=== PATIENT | female | born 1960 | race Caucasian/White ===

== ENCOUNTER 2020-06-25 10:50 | Inpatient (IN) ==
[2020-06-25] MEDS ORDERED: DEXTROSE 50% 25 GM/50 ML VIAL IV PRN (12:17)
[2020-06-25] MEDS ORDERED: ACETAMINOPHEN 325 MG TABLET PO PRN (12:17)
[2020-06-25] MEDS ORDERED: ONDANSETRON 4 MG/2 ML VIAL IV PRN (12:17)
[2020-06-25] MEDS ORDERED: GLUCAGON 1 MG VIAL IM PRN (12:17)
[2020-06-25] MEDS ORDERED: DOCUSATE SODIUM 100 MG CAPSULE PO PRN (12:17)
[2020-06-25] MEDS ORDERED: guaiFENesin/DM ER 600-30 MG TABLET PO PRN (12:17)
[2020-06-25] MEDS: hydrALAZINE 20 MG/1 ML VIAL IV PRN (15:39)
[2020-06-25 15:42] LABS: Basophils % 0.5 % (0.0-0.8); Eosinophils # 0.1 10*3/uL (0.0-0.87); Eosinophils % 1.3 % (0.00-10.9); Hematocrit 46.6 VOL% (35.7-47.0); Hemoglobin 15.9 GM/DL (12.0-16.0); Immature Granulocytes % 0.3 %; Immature Granulocytes Absolute 0.02 #; Lymphocytes # 1.5 10*3/uL (1.4-4.0); Mean Corpuscular HGB Conc 34.1 GM/DL (32-36); Mean Corpuscular Volume 111.2 FL (87-102); Monocytes % 8.1 % (1.7-12.7); Neutrophils % 70.8 % (38.7-73.9); Platelet Count 235 T/CUMM (130-400); Red Blood Count 4.19 MC/CUMM (3.8-5.5); White Blood Count 7.7 T/CUMM (4-12)
[2020-06-25] MEDS ORDERED: DEXAMETHASONE INJ 10 MG in SODIUM CHLORIDE 0.9% 50 ML IV ONE (15:42)
[2020-06-25] MEDS ORDERED: DEXAMETHASONE 4 MG/1 ML VIAL IV SCH (16:00)
[2020-06-25 16:06] LABS: Albumin 3.8 G/DL (3.4-5.0); Bilirubin,Total 0.9 MG/DL (0.2-1.0); Osmolality,Calculated 274.7 MOS/KG (273-304); Potassium 3.5 MMOL/L (3.5-5.1)
[2020-06-25] MEDS ORDERED: SODIUM CHLORIDE 0.9% 500 ML IV ONE (16:53)
[2020-06-25] MEDS: DEXAMETHASONE 4 MG TABLET PO SCH (20:48)
[2020-06-25] MEDS: ENOXAPARIN 40 MG/0.4 ML SYRINGE SUBCUT SCH (20:48)
[2020-06-26] MEDS ORDERED: VECURONIUM 10 MG VIAL IV ONE (04:30)
[2020-06-26] MEDS ORDERED: ETOMIDATE 20 MG/10 ML VIAL IV ONE ×2 (04:30→04:45)
[2020-06-26] MEDS ORDERED: CALCIUM CHLORIDE 1,000 MG/10 ML SYRINGE IV ONE (04:45)
[2020-06-26] MEDS ORDERED: AMIODARONE 150 MG/3 ML VIAL ONE (04:45)
[2020-06-26] MEDS ORDERED: MAGNESIUM SULFATE 1 GM/2 ML VIAL ONE (04:45)
[2020-06-26] MEDS ORDERED: EPINEPHrine 1 MG/10 ML SYRINGE ONE (04:45)
[2020-06-26 04:49] LABS: Basophils # 0.1 10*3/uL (0.0-0.2); Basophils % 0.6 % (0.0-0.8); Eosinophils # 0.1 10*3/uL (0.0-0.87); Eosinophils % 0.5 % (0.00-10.9); Hemoglobin 17.1 GM/DL (12.0-16.0); Immature Granulocytes % 5.8 %; Immature Granulocytes Absolute 0.64 #; Lymphocytes # 3.2 10*3/uL (1.4-4.0); Lymphocytes % 28.6 % (21.3-54.2); Mean Corpuscular HGB Conc 33.5 GM/DL (32-36); Mean Corpuscular Volume 112.6 FL (87-102); Mean Platelet Volume 10.3 FL (9.6-12.0); NRBC # 0.06 10*3/uL; Neutrophils % 61.5 % (38.7-73.9); Platelet Count 227 T/CUMM (130-400); Red Blood Count 4.53 MC/CUMM (3.8-5.5); Red Cell Distribution Width 14.1 % (9.3-17.3)
[2020-06-26] MEDS ORDERED: LORazepam 2 MG/1 ML VIAL IV PRN (04:49)
[2020-06-26] MEDS: AMIODARONE INJ 450 MG in DEXTROSE 5% 241 ML IV SCH ×2 (05:01→12:23)
[2020-06-26 05:07] LABS: Allen Test Positive; Pt O2 Delivery Device Ventilator
[2020-06-26 05:08] LABS: ABG Base Excess -3.8 MMOL/L (-2.5-2.5); ABG HCO3 21.4 MMOL/L (20-26); ABG Oxygen Saturation 99.5 % (95-100); ABG PCO2 51.1 MM HG (35-48); ABG PH 7.281 (7.35-7.45); ABG TCO2 20.4 MMOL/L (23-27)
[2020-06-26 05:08] LABS: Band Neutrophils 4 % (0-10); Eosinophils 4 % (0-10); Lymphocytes 33 % (20-55); Platelet Estimate Adequate; Segmented Neutrophils 56 % (50-85); Total Cells Counted 100
[2020-06-26 05:11] LABS: Calcium 11.1 MG/DL (8.5-10.1); Osmolality,Calculated 276.4 MOS/KG (273-304); Potassium 2.9 MMOL/L (3.5-5.1)
[2020-06-26 05:28] LABS: Calcium 10.6 MG/DL (8.5-10.1); Osmolality,Calculated 279.2 MOS/KG (273-304); Risk Ratio 2.05; VLDL CHOLESTEROL 28.2 MG/DL
[2020-06-26] MEDS: PIPERACILLIN/TAZOBACTAM 3,375 MG in SODIUM CHLORIDE 0.9% 100 ML IV SCH ×2 (05:28→18:24)
[2020-06-26] MEDS ORDERED: POTASSIUM CHLORIDE 20 MEQ/15 ML UDCUP PER TUBE ONE (06:03)
[2020-06-26 06:07] LABS: Bilirubin,Urine Negative (Negative); Blood, Urine Large mg/dL (Negative); Glucose,Urine (UA) >=500 mg/dL (Negative); Ketones,Urine Negative (Negative); Mucus,Urine Occasional /LPF (Occasional); Nitrite,Urine Negative (Negative); Protein,Urine >=500 MG/DL; RBC,Urine 1 /HPF (0-4); Squamous Epithelial Cell,Urine Occasional /HPF (0-10); Urine Appearance CLEAR (Clear); Urine Color Yellow (Yellow); Urine Specific Gravity 1.008 (1.001-1.035); Urine Urobilinogen < 2.0 EU/DL (0.2-1.0); WBC,Urine 1 /HPF (0-6)
[2020-06-26] MEDS ORDERED: SODIUM CHLORIDE 0.9% 1,000 ML IV SCH (06:30)
[2020-06-26] MEDS ORDERED: DOCUSATE SODIUM 100 MG/10 ML UDCUP NG PRN (07:30)
[2020-06-26] MEDS ORDERED: DEXTROSE 50% 25 GM/50 ML VIAL IV PRN (08:25)
[2020-06-26] MEDS ORDERED: GLUCAGON 1 MG VIAL IM PRN (08:25)
[2020-06-26] MEDS: LORazepam 2 MG/1 ML VIAL IV PRN (08:28)
[2020-06-26] MEDS: LACTATED RINGERS 1,000 ML IV SCH ×2 (08:29→18:26)
[2020-06-26] MEDS: PANTOPRAZOLE 40 MG VIAL IV SCH (08:36)
[2020-06-26] MEDS: DEXAMETHASONE 4 MG TABLET PO SCH ×2 (08:36→20:23)
[2020-06-26] MEDS ORDERED: DEXAMETHASONE INJ 10 MG in SODIUM CHLORIDE 0.9% 50 ML IV SCH (09:00)
[2020-06-26] MEDS: MIDAZOLAM 100 MG in SODIUM CHLORIDE 0.9% 80 ML IV PRN ×2 (09:09→20:46)
[2020-06-26 09:12] LABS: Troponin I 0.542 NG/ML (0.00-0.045)
[2020-06-26 09:20] LABS: ABG HCO3 25.3 MMOL/L (20-26); ABG PCO2 38.9 MM HG (35-48); ABG PH 7.422 (7.35-7.45); ABG TCO2 21.7 MMOL/L (23-27)
[2020-06-26 12:17] LABS: CKMB % 2.8 %
[2020-06-26 12:23] LABS: Troponin I 1.18 NG/ML (0.00-0.045)
[2020-06-26 12:26] LABS: Albumin 3.1 G/DL (3.4-5.0); Bilirubin,Total 1.6 MG/DL (0.2-1.0); Calcium 9.4 MG/DL (8.5-10.1); Osmolality,Calculated 285.7 MOS/KG (273-304); Potassium 3.2 MMOL/L (3.5-5.1); Total Protein 7.1 G/DL (6.4-8.2)
[2020-06-26] MEDS: INSULIN LISPRO 100 UNIT/ML SUBCUT SCH ×2 (12:33→18:57)
[2020-06-26] MEDS: POTASSIUM CHLORIDE 20 MEQ/15 ML UDCUP PER TUBE PRN ×2 (20:23→22:21)
[2020-06-26] MEDS: ENOXAPARIN 40 MG/0.4 ML SYRINGE SUBCUT SCH (20:23)
[2020-06-27] MEDS: POTASSIUM CHLORIDE 20 MEQ/15 ML UDCUP PER TUBE PRN (00:20)
[2020-06-27] MEDS: INSULIN LISPRO 100 UNIT/ML SUBCUT SCH ×5 (00:20→23:38)
[2020-06-27] MEDS ORDERED: LORazepam 2 MG/1 ML VIAL IV ONE (01:12)
[2020-06-27] MEDS: PIPERACILLIN/TAZOBACTAM 3,375 MG in SODIUM CHLORIDE 0.9% 100 ML IV SCH ×3 (02:55→18:36)
[2020-06-27] MEDS ORDERED: fentaNYL 100 MCG/2 ML VIAL IV ONE (04:07)
[2020-06-27 04:13] LABS: Immature Granulocytes % 1.2 %; Immature Granulocytes Absolute 0.12 #; Lymphocytes # 0.8 10*3/uL (1.4-4.0); Lymphocytes % 7.3 % (21.3-54.2); Mean Corpuscular HGB Conc 33.2 GM/DL (32-36); Mean Corpuscular Volume 114.2 FL (87-102); Monocytes % 4.9 % (1.7-12.7); Neutrophils % 86.6 % (38.7-73.9); Red Cell Distribution Width 14.5 % (9.3-17.3); White Blood Count 10.4 T/CUMM (4-12)
[2020-06-27 04:19] LABS: Hemoglobin 12.3 GM/DL (12.0-16.0); Red Blood Count 3.24 MC/CUMM (3.8-5.5)
[2020-06-27 04:20] LABS: Platelet Count 158 T/CUMM (130-400)
[2020-06-27 04:22] LABS: Albumin 2.6 G/DL (3.4-5.0); Bilirubin,Total 1.7 MG/DL (0.2-1.0); Calcium 8.4 MG/DL (8.5-10.1); Osmolality,Calculated 287.3 MOS/KG (273-304); Potassium 4.2 MMOL/L (3.5-5.1); Total Protein 5.8 G/DL (6.4-8.2)
[2020-06-27 04:30] LABS: Hypochromasia Slight
[2020-06-27 04:39] LABS: ABG Base Excess 2.2 MMOL/L (-2.5-2.5); ABG HCO3 26.4 MMOL/L (20-26); ABG Oxygen Saturation 99.3 % (95-100); ABG PCO2 31.3 MM HG (35-48); ABG PH 7.505 (7.35-7.45); ABG TCO2 21.5 MMOL/L (23-27)
[2020-06-27] MEDS ORDERED: fentaNYL 100 MCG/2 ML VIAL IV PRN (05:36)
[2020-06-27] MEDS: LACTATED RINGERS 1,000 ML IV SCH ×5 (06:11→23:36)
[2020-06-27] MEDS ORDERED: MAGNESIUM SULF RIDER 2 GM in PREMIX 1 EACH IV ONE (08:00)
[2020-06-27 08:12] LABS: ABG Base Excess 2.6 MMOL/L (-2.5-2.5); ABG Oxygen Saturation 98.1 % (95-100); ABG PCO2 36.1 MM HG (35-48); ABG PH 7.475 (7.35-7.45); ABG PO2 120.3 MM HG (80-95); ABG TCO2 27.1 MMOL/L (23-27); Allen Test Positive; Pt O2 Delivery Device Ventilator
[2020-06-27] MEDS: fentaNYL 100 MCG/2 ML VIAL IV PRN ×3 (08:15→20:08)
[2020-06-27] MEDS: MULTIVITAMIN LIQUID (CENTRUM) 60 ML BOTTLE NG SCH (10:59)
[2020-06-27] MEDS: DEXAMETHASONE 4 MG TABLET PO SCH ×2 (10:59→20:00)
[2020-06-27] MEDS: FOLIC ACID 1 MG TABLET PER TUBE SCH (11:00)
[2020-06-27] MEDS: PANTOPRAZOLE 40 MG VIAL IV SCH (11:00)
[2020-06-27] MEDS: THIAMINE 100 MG TABLET PER TUBE SCH (11:00)
[2020-06-27 12:07] LABS: Troponin I 0.194 NG/ML (0.00-0.045)
[2020-06-27] MEDS: MIDAZOLAM 100 MG in SODIUM CHLORIDE 0.9% 80 ML IV PRN (13:01)
[2020-06-27] MEDS: AMIODARONE 200 MG TABLET NG SCH ×2 (13:06→20:00)
[2020-06-27] MEDS: ALBUMIN 25% 12.5 GM in PREMIX 1 EACH IV SCH ×2 (17:00→23:39)
[2020-06-27] MEDS: ENOXAPARIN 40 MG/0.4 ML SYRINGE SUBCUT SCH (20:00)
[2020-06-28] MEDS: MIDAZOLAM 100 MG in SODIUM CHLORIDE 0.9% 80 ML IV PRN ×2 (00:11→13:47)
[2020-06-28 03:12] LABS: ABG Base Excess 2.5 MMOL/L (-2.5-2.5); ABG HCO3 26.6 MMOL/L (20-26); ABG Oxygen Saturation 99.3 % (95-100); ABG PCO2 42.8 MM HG (35-48); ABG PH 7.414 (7.35-7.45); ABG TCO2 24.3 MMOL/L (23-27)
[2020-06-28 04:32] LABS: Hematocrit 36.7 VOL% (35.7-47.0); Hemoglobin 12.2 GM/DL (12.0-16.0); Immature Granulocytes % 0.8 %; Immature Granulocytes Absolute 0.07 #; Lymphocytes # 0.8 10*3/uL (1.4-4.0); Lymphocytes % 9.2 % (21.3-54.2); Mean Corpuscular HGB Conc 33.2 GM/DL (32-36); Mean Corpuscular Volume 115.4 FL (87-102); Mean Platelet Volume 11.1 FL (9.6-12.0); Monocytes % 5.9 % (1.7-12.7); Neutrophils % 84.1 % (38.7-73.9); Platelet Count 149 T/CUMM (130-400); Red Blood Count 3.18 MC/CUMM (3.8-5.5); Red Cell Distribution Width 14.6 % (9.3-17.3)
[2020-06-28 04:47] LABS: Calcium 8.1 MG/DL (8.5-10.1); Osmolality,Calculated 283.4 MOS/KG (273-304); Potassium 4.1 MMOL/L (3.5-5.1)
[2020-06-28] MEDS: PIPERACILLIN/TAZOBACTAM 3,375 MG in SODIUM CHLORIDE 0.9% 100 ML IV SCH ×2 (04:57→09:27)
[2020-06-28] MEDS: INSULIN LISPRO 100 UNIT/ML SUBCUT SCH ×3 (05:04→17:54)
[2020-06-28 05:12] LABS: Hypochromasia Slight; Macrocytosis 1+; Platelet Estimate Adequate
[2020-06-28] MEDS: LACTATED RINGERS 1,000 ML IV SCH ×2 (07:45→15:33)
[2020-06-28] MEDS: AMIODARONE 200 MG TABLET NG SCH ×2 (08:30→21:18)
[2020-06-28] MEDS: DEXAMETHASONE 4 MG TABLET PO SCH ×2 (08:30→21:18)
[2020-06-28] MEDS: MULTIVITAMIN LIQUID (CENTRUM) 60 ML BOTTLE NG SCH (08:30)
[2020-06-28] MEDS: THIAMINE 100 MG TABLET PER TUBE SCH (08:30)
[2020-06-28] MEDS: FOLIC ACID 1 MG TABLET PER TUBE SCH (08:30)
[2020-06-28] MEDS: ALBUMIN 25% 12.5 GM in PREMIX 1 EACH IV SCH ×2 (09:12→15:45)
[2020-06-28] MEDS: PANTOPRAZOLE 40 MG VIAL IV SCH (09:13)
[2020-06-28] MEDS: NICOTINE 21 MG/24 HR PATCH TRANSDERM SCH (09:43)
[2020-06-28] MEDS: lisinopriL 20 MG TABLET PO SCH (09:43)
[2020-06-28] MEDS: hydrALAZINE 20 MG/1 ML VIAL IV PRN (10:12)
[2020-06-28] MEDS: LORazepam 2 MG/1 ML VIAL IV PRN (10:21)
[2020-06-28] MEDS: DEXMEDETOMIDINE 200 MCG in SODIUM CHLORIDE 0.9% 48 ML IV PRN ×3 (11:00→20:26)
[2020-06-28] MEDS ORDERED: MEROPENEM 500 MG in SODIUM CHLORIDE 0.9% 100 ML IV SCH (13:00)
[2020-06-28] MEDS: MEROPENEM 500 MG in SODIUM CHLORIDE 0.9% 100 ML IV SCH ×2 (13:46→21:18)
[2020-06-28] MEDS: ENOXAPARIN 40 MG/0.4 ML SYRINGE SUBCUT SCH (21:18)
[2020-06-28] MEDS: fentaNYL 100 MCG/2 ML VIAL IV PRN (22:54)
[2020-06-29] MEDS: LACTATED RINGERS 1,000 ML IV SCH ×2 (02:08→08:48)
[2020-06-29] MEDS: INSULIN LISPRO 100 UNIT/ML SUBCUT SCH ×4 (02:08→17:29)
[2020-06-29] MEDS: ALBUMIN 25% 12.5 GM in PREMIX 1 EACH IV SCH ×2 (02:08→09:42)
[2020-06-29] MEDS: MEROPENEM 500 MG in SODIUM CHLORIDE 0.9% 100 ML IV SCH ×4 (02:09→20:07)
[2020-06-29] MEDS: DEXMEDETOMIDINE 200 MCG in SODIUM CHLORIDE 0.9% 48 ML IV PRN ×2 (02:12→06:18)
[2020-06-29] MEDS: fentaNYL 100 MCG/2 ML VIAL IV PRN (04:14)
[2020-06-29 04:27] LABS: ABG Base Excess 0.7 MMOL/L (-2.5-2.5); ABG PCO2 38.8 MM HG (35-48); ABG PH 7.418 (7.35-7.45); ABG PO2 91.9 MM HG (80-95); ABG TCO2 22.3 MMOL/L (23-27); Allen Test Positive; Pt O2 Delivery Device Ventilator
[2020-06-29 05:39] LABS: Hematocrit 36.4 VOL% (35.7-47.0); Hemoglobin 11.7 GM/DL (12.0-16.0); Immature Granulocytes % 0.7 %; Immature Granulocytes Absolute 0.05 #; Lymphocytes # 0.8 10*3/uL (1.4-4.0); Lymphocytes % 10.4 % (21.3-54.2); Mean Corpuscular HGB Conc 32.1 GM/DL (32-36); Mean Corpuscular Volume 118.2 FL (87-102); Mean Platelet Volume 11.6 FL (9.6-12.0); Monocytes % 5.4 % (1.7-12.7); Neutrophils % 83.5 % (38.7-73.9); Platelet Count 166 T/CUMM (130-400); Red Blood Count 3.08 MC/CUMM (3.8-5.5); Red Cell Distribution Width 14.6 % (9.3-17.3); White Blood Count 7.4 T/CUMM (4-12)
[2020-06-29 05:48] LABS: Calcium 8.4 MG/DL (8.5-10.1); Osmolality,Calculated 282.7 MOS/KG (273-304); Potassium 4.5 MMOL/L (3.5-5.1)
[2020-06-29 06:24] LABS: Polychromasia Slight
[2020-06-29 06:25] LABS: Macrocytosis 1+; Platelet Estimate Adequate
[2020-06-29] MEDS ORDERED: LORazepam 2 MG/1 ML VIAL IV ONE ×2 (08:20→12:03)
[2020-06-29] MEDS ORDERED: FUROSEMIDE 20 MG/2 ML VIAL IV ONE (08:35)
[2020-06-29] MEDS ORDERED: LORazepam 2 MG/1 ML VIAL IV PRN (09:00)
[2020-06-29] MEDS: FOLIC ACID 1 MG TABLET PO SCH (09:02)
[2020-06-29] MEDS: lisinopriL 20 MG TABLET PO SCH (09:02)
[2020-06-29] MEDS: DEXAMETHASONE 4 MG TABLET PO SCH (09:02)
[2020-06-29] MEDS: AMIODARONE 200 MG TABLET NG SCH ×2 (09:02→20:07)
[2020-06-29] MEDS: THIAMINE 100 MG TABLET PO SCH (09:03)
[2020-06-29] MEDS: NICOTINE 21 MG/24 HR PATCH TRANSDERM SCH (09:03)
[2020-06-29] MEDS: PANTOPRAZOLE 40 MG VIAL IV SCH (09:13)
[2020-06-29] MEDS ORDERED: ALBUTEROL/IPRATROPIUM 3 ML NEB RESP TX PRN (09:56)
[2020-06-29] MEDS ORDERED: methylPREDNISolone SOD SUC 40 MG/1 ML VIAL IV ONE (11:32)
[2020-06-29] MEDS: BUDESONIDE 0.5 MG/2 ML NEB RESP TX SCH ×2 (11:34→19:30)
[2020-06-29] MEDS: ARFORMOTEROL 15 MCG/2 ML NEB RESP TX SCH ×2 (11:34→19:30)
[2020-06-29] MEDS ORDERED: MORPHINE 4 MG/1 ML VIAL IV ONE (12:03)
[2020-06-29] MEDS ORDERED: DEXAMETHASONE 4 MG TABLET PO SCH (13:00)
[2020-06-29] MEDS ORDERED: DEXAMETHASONE 4 MG/1 ML VIAL IV SCH (13:00)
[2020-06-29] MEDS ORDERED: HALOPERIDOL 5 MG/ML AMP IM ONE (13:43)
[2020-06-29] MEDS: ALBUTEROL/IPRATROPIUM 3 ML NEB RESP TX SCH ×2 (15:18→19:30)
[2020-06-29] MEDS: ENOXAPARIN 40 MG/0.4 ML SYRINGE SUBCUT SCH (20:06)
[2020-06-29] MEDS: DEXAMETHASONE 4 MG/1 ML VIAL IV SCH (20:07)
[2020-06-29] MEDS: HALOPERIDOL 5 MG/ML AMP IM PRN (20:21)
[2020-06-29] MEDS: hydrALAZINE 20 MG/1 ML VIAL IV PRN (21:25)
[2020-06-30] MEDS: ALBUTEROL/IPRATROPIUM 3 ML NEB RESP TX SCH ×7 (00:28→23:40)
[2020-06-30] MEDS: MEROPENEM 500 MG in SODIUM CHLORIDE 0.9% 100 ML IV SCH ×4 (02:23→20:58)
[2020-06-30] MEDS: INSULIN LISPRO 100 UNIT/ML SUBCUT SCH ×3 (02:23→11:16)
[2020-06-30] MEDS: DEXAMETHASONE 4 MG/1 ML VIAL IV SCH ×4 (02:23→20:58)
[2020-06-30 05:13] LABS: Albumin 3.4 G/DL (3.4-5.0); Bilirubin,Total 0.6 MG/DL (0.2-1.0); Calcium 8.8 MG/DL (8.5-10.1); Osmolality,Calculated 282.5 MOS/KG (273-304); Potassium 3.8 MMOL/L (3.5-5.1); Total Protein 6.1 G/DL (6.4-8.2)
[2020-06-30] MEDS: HALOPERIDOL 5 MG/ML AMP IM PRN (05:46)
[2020-06-30] MEDS: POTASSIUM CHLORIDE 20 MEQ/15 ML UDCUP PER TUBE PRN (05:46)
[2020-06-30] MEDS: BUDESONIDE 0.5 MG/2 ML NEB RESP TX SCH ×2 (06:18→19:15)
[2020-06-30] MEDS: ARFORMOTEROL 15 MCG/2 ML NEB RESP TX SCH ×2 (06:18→19:15)
[2020-06-30] MEDS: FOLIC ACID 1 MG TABLET PO SCH (08:21)
[2020-06-30] MEDS: THIAMINE 100 MG TABLET PO SCH (08:21)
[2020-06-30] MEDS: AMIODARONE 200 MG TABLET NG SCH ×2 (08:21→20:58)
[2020-06-30] MEDS: lisinopriL 20 MG TABLET PO SCH (08:21)
[2020-06-30] MEDS: PANTOPRAZOLE 40 MG VIAL IV SCH (08:22)
[2020-06-30] MEDS: NICOTINE 21 MG/24 HR PATCH TRANSDERM SCH ×2 (08:23→08:43)
[2020-06-30] MEDS ORDERED: POTASSIUM CHLORIDE 20 MEQ TABLET PO ONE (10:16)
[2020-06-30] MEDS ORDERED: ALBUMIN 25% 25 GM in PREMIX 1 EACH IV ONE (12:45)
[2020-06-30] MEDS ORDERED: FUROSEMIDE 20 MG/2 ML VIAL IV ONE (12:45)
[2020-06-30] MEDS: ENOXAPARIN 40 MG/0.4 ML SYRINGE SUBCUT SCH (20:58)
[2020-06-30] MEDS: hydrALAZINE 20 MG/1 ML VIAL IV PRN (22:18)
[2020-07-01] MEDS: DEXAMETHASONE 4 MG/1 ML VIAL IV SCH ×4 (02:27→20:38)
[2020-07-01] MEDS: MEROPENEM 500 MG in SODIUM CHLORIDE 0.9% 100 ML IV SCH ×4 (02:28→20:39)
[2020-07-01] MEDS: ALBUTEROL/IPRATROPIUM 3 ML NEB RESP TX SCH ×6 (03:13→23:49)
[2020-07-01 05:23] LABS: Basophils % 0.2 % (0.0-0.8); Hematocrit 35.4 VOL% (35.7-47.0); Hemoglobin 12.1 GM/DL (12.0-16.0); Immature Granulocytes % 1.7 %; Immature Granulocytes Absolute 0.17 #; Lymphocytes # 0.3 10*3/uL (1.4-4.0); Lymphocytes % 2.6 % (21.3-54.2); Mean Corpuscular HGB Conc 34.2 GM/DL (32-36); Mean Corpuscular Volume 111.3 FL (87-102); Mean Platelet Volume 11.2 FL (9.6-12.0); Monocytes % 6.5 % (1.7-12.7); Platelet Count 207 T/CUMM (130-400); Red Blood Count 3.18 MC/CUMM (3.8-5.5); Red Cell Distribution Width 14.7 % (9.3-17.3); White Blood Count 9.8 T/CUMM (4-12)
[2020-07-01 05:38] LABS: Osmolality,Calculated 282.7 MOS/KG (273-304)
[2020-07-01 05:47] LABS: Hypochromasia 1+; Lymphocytes 2 % (20-55); Segmented Neutrophils 89 % (50-85); Total Cells Counted 100
[2020-07-01 05:48] LABS: Macrocytosis 1+; PT Patient Result 10.8 SECS (9.8-11.9); Platelet Estimate Normal
[2020-07-01] MEDS: BUDESONIDE 0.5 MG/2 ML NEB RESP TX SCH ×2 (07:15→19:36)
[2020-07-01] MEDS: ARFORMOTEROL 15 MCG/2 ML NEB RESP TX SCH ×2 (07:15→19:36)
[2020-07-01] MEDS ORDERED: MAGNESIUM SULF RIDER 2 GM in PREMIX 1 EACH IV ONE (07:18)
[2020-07-01] MEDS ORDERED: FUROSEMIDE 40 MG/4 ML VIAL IV ONE (07:28)
[2020-07-01] MEDS: NICOTINE 21 MG/24 HR PATCH TRANSDERM SCH (09:01)
[2020-07-01] MEDS: AMIODARONE 200 MG TABLET NG SCH (09:09)
[2020-07-01] MEDS: FOLIC ACID 1 MG TABLET PO SCH (09:09)
[2020-07-01] MEDS: lisinopriL 20 MG TABLET PO SCH (09:09)
[2020-07-01] MEDS: PANTOPRAZOLE 40 MG VIAL IV SCH (09:10)
[2020-07-01] MEDS: THIAMINE 100 MG TABLET PO SCH (09:10)
[2020-07-01] MEDS ORDERED: DIAZEPAM 5 MG TABLET PO ONE (12:32)
[2020-07-01] MEDS ORDERED: DEXTROSE 50% 25 GM/50 ML VIAL IV PRN (17:00)
[2020-07-01] MEDS ORDERED: GLUCAGON 1 MG VIAL IM PRN (17:00)
[2020-07-01] MEDS: METOPROLOL TARTRATE 25 MG TABLET PO SCH (20:39)
[2020-07-01] MEDS: ENOXAPARIN 40 MG/0.4 ML SYRINGE SUBCUT SCH (20:39)
[2020-07-02] MEDS: MEROPENEM 500 MG in SODIUM CHLORIDE 0.9% 100 ML IV SCH ×4 (01:10→20:50)
[2020-07-02] MEDS: DEXAMETHASONE 4 MG/1 ML VIAL IV SCH ×3 (01:55→09:16)
[2020-07-02] MEDS: ALBUTEROL/IPRATROPIUM 3 ML NEB RESP TX SCH ×5 (03:39→19:52)
[2020-07-02] MEDS: hydrALAZINE 20 MG/1 ML VIAL IV PRN ×2 (06:10→20:47)
[2020-07-02 07:12] LABS: Calcium 9.4 MG/DL (8.5-10.1); Osmolality,Calculated 275.2 MOS/KG (273-304); Potassium 5.1 MMOL/L (3.5-5.1)
[2020-07-02 07:23] LABS: Basophils % 0.3 % (0.0-0.8); Hematocrit 38.8 VOL% (35.7-47.0); Hemoglobin 13.7 GM/DL (12.0-16.0); Immature Granulocytes % 1.6 %; Lymphocytes # 0.3 10*3/uL (1.4-4.0); Lymphocytes % 2.3 % (21.3-54.2); Mean Corpuscular HGB Conc 35.3 GM/DL (32-36); Mean Corpuscular Volume 108.1 FL (87-102); Mean Platelet Volume 12.4 FL (9.6-12.0); Monocytes % 7.5 % (1.7-12.7); Neutrophils % 88.3 % (38.7-73.9); Platelet Count 208 T/CUMM (130-400); Red Blood Count 3.59 MC/CUMM (3.8-5.5); Red Cell Distribution Width 14.4 % (9.3-17.3); White Blood Count 12.8 T/CUMM (4-12)
[2020-07-02 07:33] LABS: Lymphocytes 4 % (20-55); Platelet Estimate Adequate; Segmented Neutrophils 89 % (50-85); Total Cells Counted 100
[2020-07-02] MEDS: ARFORMOTEROL 15 MCG/2 ML NEB RESP TX SCH ×2 (07:34→19:52)
[2020-07-02] MEDS: BUDESONIDE 0.5 MG/2 ML NEB RESP TX SCH ×2 (07:34→19:52)
[2020-07-02] MEDS ORDERED: NIFEdipine 10 MG CAPSULE PO PRN (07:52)
[2020-07-02] MEDS: PANTOPRAZOLE 40 MG VIAL IV SCH (09:14)
[2020-07-02] MEDS: lisinopriL 20 MG TABLET PO SCH (09:14)
[2020-07-02] MEDS: THIAMINE 100 MG TABLET PO SCH (09:14)
[2020-07-02] MEDS: FOLIC ACID 1 MG TABLET PO SCH (09:14)
[2020-07-02] MEDS: METOPROLOL TARTRATE 25 MG TABLET PO SCH ×2 (09:14→20:44)
[2020-07-02] MEDS: NICOTINE 21 MG/24 HR PATCH TRANSDERM SCH (09:19)
[2020-07-02] MEDS ORDERED: allopurinoL 300 MG TABLET PO SCH (11:15)
[2020-07-02] MEDS: allopurinoL 300 MG TABLET PO SCH (11:29)
[2020-07-02] MEDS: levETIRAcetam 500 MG TABLET PO SCH (20:44)
[2020-07-02] MEDS: ENOXAPARIN 40 MG/0.4 ML SYRINGE SUBCUT SCH (20:45)
[2020-07-03] MEDS: ALBUTEROL/IPRATROPIUM 3 ML NEB RESP TX SCH ×7 (00:34→23:48)
[2020-07-03] MEDS: DEXAMETHASONE 4 MG/1 ML VIAL IV SCH ×3 (00:39→21:16)
[2020-07-03] MEDS: MEROPENEM 500 MG in SODIUM CHLORIDE 0.9% 100 ML IV SCH ×4 (02:34→20:45)
[2020-07-03 05:40] LABS: Calcium 8.7 MG/DL (8.5-10.1); Osmolality,Calculated 276.8 MOS/KG (273-304); Potassium 3.5 MMOL/L (3.5-5.1)
[2020-07-03] MEDS: ARFORMOTEROL 15 MCG/2 ML NEB RESP TX SCH ×2 (07:32→19:40)
[2020-07-03] MEDS: BUDESONIDE 0.5 MG/2 ML NEB RESP TX SCH ×2 (07:32→19:40)
[2020-07-03] MEDS: PANTOPRAZOLE 40 MG VIAL IV SCH (08:28)
[2020-07-03] MEDS: lisinopriL 20 MG TABLET PO SCH (08:30)
[2020-07-03] MEDS: THIAMINE 100 MG TABLET PO SCH (08:30)
[2020-07-03] MEDS: allopurinoL 300 MG TABLET PO SCH (08:30)
[2020-07-03] MEDS: METOPROLOL TARTRATE 25 MG TABLET PO SCH ×2 (08:30→20:40)
[2020-07-03] MEDS: levETIRAcetam 500 MG TABLET PO SCH ×2 (08:31→20:40)
[2020-07-03] MEDS: FOLIC ACID 1 MG TABLET PO SCH (08:31)
[2020-07-03] MEDS: NICOTINE 21 MG/24 HR PATCH TRANSDERM SCH (09:40)
[2020-07-03] MEDS: ENOXAPARIN 40 MG/0.4 ML SYRINGE SUBCUT SCH (20:40)
[2020-07-04] MEDS: MEROPENEM 500 MG in SODIUM CHLORIDE 0.9% 100 ML IV SCH ×4 (01:59→21:41)
[2020-07-04] MEDS: ALBUTEROL/IPRATROPIUM 3 ML NEB RESP TX SCH ×6 (03:18→23:28)
[2020-07-04 06:23] LABS: Basophils % 0.2 % (0.0-0.8); Eosinophils % 0.1 % (0.00-10.9); Hematocrit 37.5 VOL% (35.7-47.0); Hemoglobin 12.7 GM/DL (12.0-16.0); Immature Granulocytes % 1.1 %; Immature Granulocytes Absolute 0.12 #; Lymphocytes # 0.6 10*3/uL (1.4-4.0); Lymphocytes % 5.5 % (21.3-54.2); Mean Corpuscular HGB Conc 33.9 GM/DL (32-36); Mean Platelet Volume 11.5 FL (9.6-12.0); Monocytes % 6.8 % (1.7-12.7); Neutrophils % 86.3 % (38.7-73.9); Platelet Count 260 T/CUMM (130-400); Red Blood Count 3.32 MC/CUMM (3.8-5.5); Red Cell Distribution Width 13.5 % (9.3-17.3); White Blood Count 10.9 T/CUMM (4-12)
[2020-07-04 06:43] LABS: Osmolality,Calculated 277.8 MOS/KG (273-304); Potassium 4.1 MMOL/L (3.5-5.1)
[2020-07-04 06:50] LABS: Anisocytosis 1+; Hypochromasia 1+; Macrocytosis 1+
[2020-07-04] MEDS: BUDESONIDE 0.5 MG/2 ML NEB RESP TX SCH ×2 (06:52→19:42)
[2020-07-04] MEDS: ARFORMOTEROL 15 MCG/2 ML NEB RESP TX SCH ×2 (06:52→19:42)
[2020-07-04] MEDS ORDERED: AMIODARONE 200 MG TABLET PO SCH (09:00)
[2020-07-04] MEDS: levETIRAcetam 500 MG TABLET PO SCH ×2 (09:06→21:40)
[2020-07-04] MEDS: allopurinoL 300 MG TABLET PO SCH (09:06)
[2020-07-04] MEDS: THIAMINE 100 MG TABLET PO SCH (09:07)
[2020-07-04] MEDS: METOPROLOL TARTRATE 25 MG TABLET PO SCH ×2 (09:07→21:40)
[2020-07-04] MEDS: FOLIC ACID 1 MG TABLET PO SCH (09:07)
[2020-07-04] MEDS: DEXAMETHASONE 4 MG/1 ML VIAL IV SCH ×2 (09:08→21:41)
[2020-07-04] MEDS: lisinopriL 20 MG TABLET PO SCH (09:08)
[2020-07-04] MEDS: PANTOPRAZOLE 40 MG VIAL IV SCH (09:08)
[2020-07-04] MEDS: NICOTINE 21 MG/24 HR PATCH TRANSDERM SCH (09:29)
[2020-07-04] MEDS: ENOXAPARIN 40 MG/0.4 ML SYRINGE SUBCUT SCH (21:42)
[2020-07-05] MEDS: MEROPENEM 500 MG in SODIUM CHLORIDE 0.9% 100 ML IV SCH ×2 (02:27→10:40)
[2020-07-05] MEDS: ALBUTEROL/IPRATROPIUM 3 ML NEB RESP TX SCH ×3 (03:17→11:27)
[2020-07-05] MEDS: BUDESONIDE 0.5 MG/2 ML NEB RESP TX SCH (07:26)
[2020-07-05] MEDS: ARFORMOTEROL 15 MCG/2 ML NEB RESP TX SCH (07:26)
[2020-07-05 07:58] VITALS: BP 165/95
[2020-07-05] MEDS: NICOTINE 21 MG/24 HR PATCH TRANSDERM SCH (10:10)
[2020-07-05] MEDS: THIAMINE 100 MG TABLET PO SCH (10:21)
[2020-07-05] MEDS: levETIRAcetam 500 MG TABLET PO SCH (10:21)
[2020-07-05] MEDS: METOPROLOL TARTRATE 25 MG TABLET PO SCH (10:22)
[2020-07-05] MEDS: lisinopriL 20 MG TABLET PO SCH (10:22)
[2020-07-05] MEDS: FOLIC ACID 1 MG TABLET PO SCH (10:23)
[2020-07-05] MEDS: allopurinoL 300 MG TABLET PO SCH (10:23)
[2020-07-05] MEDS: DEXAMETHASONE 4 MG/1 ML VIAL IV SCH (10:26)
[2020-07-05] MEDS: PANTOPRAZOLE 40 MG VIAL IV SCH (10:28)
== END 2020-07-05 11:25 | disposition home or self-care (01) | DRG 54 ==
LOC: N.EDINP 10:50 → N.ED 10:50 → SUATTDRO 12:17 → N.EDINP 13:35 → N.4E 15:20 → N.ICU 06-26 04:35 → SUATTDRO 06-26 07:35 → N.4E 07-02 17:39
PROVIDERS: ADMIT Family Medicine; ATTEND Internal Medicine

== ENCOUNTER 2021-07-14 14:24 | Inpatient (IN) ==
[2021-07-14] MEDS ORDERED: SODIUM CHLORIDE 0.9% 1,000 ML IV STA (15:58)
[2021-07-14] MEDS ORDERED: MORPHINE 2 MG/1 ML SYRINGE IV STA (15:59)
[2021-07-14] MEDS ORDERED: ONDANSETRON 4 MG/2 ML VIAL IV STA (15:59)
[2021-07-14] MEDS ORDERED: PANTOPRAZOLE 40 MG VIAL IV STA (15:59)
[2021-07-14 16:17] LABS: Basophils % 0.2 % (0.0-0.8); Eosinophils # 0.1 10*3/uL (0.0-0.87); Eosinophils % 0.5 % (0.00-10.9); Hematocrit 29.9 VOL% (35.7-47.0); Hemoglobin 10.2 GM/DL (12.0-16.0); Immature Granulocytes % 1.8 %; Immature Granulocytes Absolute 0.33 #; Lymphocytes # 1.5 10*3/uL (1.4-4.0); Lymphocytes % 8.1 % (21.3-54.2); Mean Corpuscular HGB Conc 34.1 GM/DL (32-36); Mean Corpuscular Volume 107.6 FL (87-102); Mean Platelet Volume 10.7 FL (9.6-12.0); Monocytes % 10.2 % (1.7-12.7); Neutrophils % 79.2 % (38.7-73.9); Platelet Count 177 T/CUMM (130-400); Red Blood Count 2.78 MC/CUMM (3.8-5.5); Red Cell Distribution Width 15.7 % (9.3-17.3); White Blood Count 18.3 T/CUMM (4-12)
[2021-07-14 16:39] LABS: Albumin 1.9 G/DL (3.4-5.0); Bilirubin,Total 0.7 MG/DL (0.20-1.00); Calcium 8.3 MG/DL (8.5-10.1); Osmolality,Calculated 265.2 MOS/KG (273-304); Potassium 3.7 MMOL/L (3.5-5.1); Total Protein 6.4 G/DL (6.4-8.2)
[2021-07-14 16:42] LABS: Bacteria,Urine Occasional /HPF (Few); RBC,Urine 2 /HPF (0-4); Squamous Epithelial Cell,Urine Occasional /HPF (0-10); Urine Color Yellow (Yellow)
[2021-07-14 16:43] LABS: Bilirubin,Urine Negative (Negative); Blood, Urine Small mg/dL (Negative); Glucose,Urine (UA) Negative (Negative); Ketones,Urine Negative (Negative); Nitrite,Urine Negative (Negative); Protein,Urine 30 mg/dL (Negative); Urine Appearance Clear (Clear); Urine Urobilinogen 0.2 eU/dL (<2.0)
[2021-07-14] MEDS ORDERED: cefTRIAXone 1,000 MG in SODIUM CHLORIDE 0.9% 100 ML IV STA (17:13)
[2021-07-14] MEDS ORDERED: GLUCAGON 1 MG VIAL IM PRN (18:22)
[2021-07-14] MEDS ORDERED: ACETAMINOPHEN 325 MG TABLET PO PRN (18:22)
[2021-07-14] MEDS ORDERED: DEXTROSE 10% 250 ML BAG IV PRN (18:30)
[2021-07-14] MEDS: VANCOMYCIN 125 MG CAPSULE PO SCH (19:20)
[2021-07-14] MEDS: LACTATED RINGERS 1,000 ML IV SCH (20:00)
[2021-07-14] MEDS: levETIRAcetam 500 MG TABLET PO SCH (20:15)
[2021-07-14] MEDS: ENOXAPARIN 40 MG/0.4 ML SYRINGE SUBCUT SCH (20:15)
[2021-07-14] MEDS: METOPROLOL TARTRATE 25 MG TABLET PO SCH (20:15)
[2021-07-15] MEDS: VANCOMYCIN 125 MG CAPSULE PO SCH ×5 (00:39→23:51)
[2021-07-15] MEDS: LACTATED RINGERS 1,000 ML IV SCH ×3 (03:24→21:28)
[2021-07-15 04:46] LABS: Basophils % 0.2 % (0.0-0.8); Eosinophils # 0.4 10*3/uL (0.0-0.87); Eosinophils % 2.1 % (0.00-10.9); Hematocrit 28.2 VOL% (35.7-47.0); Immature Granulocytes % 1.4 %; Immature Granulocytes Absolute 0.23 #; Lymphocytes # 2.6 10*3/uL (1.4-4.0); Lymphocytes % 15.5 % (21.3-54.2); Mean Corpuscular HGB Conc 31.9 GM/DL (32-36); Mean Corpuscular Volume 111.5 FL (87-102); Monocytes % 11.6 % (1.7-12.7); Neutrophils % 69.2 % (38.7-73.9); Platelet Count 161 T/CUMM (130-400); Red Blood Count 2.53 MC/CUMM (3.8-5.5); Red Cell Distribution Width 15.7 % (9.3-17.3); White Blood Count 16.7 T/CUMM (4-12)
[2021-07-15 05:09] LABS: Albumin 1.6 G/DL (3.4-5.0); Bilirubin,Total 0.4 MG/DL (0.20-1.00); Calcium 7.5 MG/DL (8.5-10.1); Osmolality,Calculated 272.5 MOS/KG (273-304); Potassium 2.8 MMOL/L (3.5-5.1); Total Protein 5.2 G/DL (6.4-8.2)
[2021-07-15] MEDS ORDERED: MAGNESIUM SULF RIDER 4 GM/100 ML PREMIX IV PRN (08:10)
[2021-07-15] MEDS: PANTOPRAZOLE 40 MG TABLET PO SCH (09:30)
[2021-07-15] MEDS: POTASSIUM CHLORIDE RIDER 10 MEQ/100 ML PREMIX IV PRN ×3 (09:31→20:24)
[2021-07-15] MEDS: ONDANSETRON 4 MG/2 ML VIAL IV PRN ×3 (09:38→20:32)
[2021-07-15] MEDS: levETIRAcetam 500 MG TABLET PO SCH ×2 (09:38→20:32)
[2021-07-15] MEDS: METOPROLOL TARTRATE 25 MG TABLET PO SCH ×2 (09:39→22:17)
[2021-07-15] MEDS: MAGNESIUM SULF RIDER 2 GM/50 ML PREMIX IV PRN ×2 (15:48→18:01)
[2021-07-15] MEDS ORDERED: cefTRIAXone 2,000 MG in SODIUM CHLORIDE 0.9% 100 ML IV SCH (17:30)
[2021-07-15] MEDS: ENOXAPARIN 40 MG/0.4 ML SYRINGE SUBCUT SCH (17:53)
[2021-07-15] MEDS: POTASSIUM CHLORIDE 20 MEQ TABLET PO PRN (23:51)
[2021-07-16] MEDS: VANCOMYCIN 125 MG CAPSULE PO SCH ×5 (05:30→23:50)
[2021-07-16 05:49] LABS: Basophils % 0.3 % (0.0-0.8); Eosinophils # 0.2 10*3/uL (0.0-0.87); Eosinophils % 1.5 % (0.00-10.9); Hematocrit 26.7 VOL% (35.7-47.0); Hemoglobin 8.7 GM/DL (12.0-16.0); Immature Granulocytes % 2.3 %; Lymphocytes # 1.3 10*3/uL (1.4-4.0); Lymphocytes % 9.9 % (21.3-54.2); Mean Corpuscular HGB Conc 32.6 GM/DL (32-36); Mean Corpuscular Volume 110.8 FL (87-102); Mean Platelet Volume 10.7 FL (9.6-12.0); Monocytes % 14.5 % (1.7-12.7); Neutrophils % 71.5 % (38.7-73.9); Platelet Count 201 T/CUMM (130-400); Red Blood Count 2.41 MC/CUMM (3.8-5.5); Red Cell Distribution Width 15.8 % (9.3-17.3); White Blood Count 13.2 T/CUMM (4-12)
[2021-07-16 06:02] LABS: Calcium 7.5 MG/DL (8.5-10.1); Osmolality,Calculated 269.1 MOS/KG (273-304); Potassium 2.7 MMOL/L (3.5-5.1)
[2021-07-16] MEDS: levETIRAcetam 500 MG TABLET PO SCH ×2 (09:19→20:59)
[2021-07-16] MEDS: POTASSIUM CHLORIDE 20 MEQ TABLET PO SCH ×2 (09:20→20:59)
[2021-07-16] MEDS: MAGNESIUM SULF RIDER 2 GM/50 ML PREMIX IV PRN (09:20)
[2021-07-16] MEDS: METOPROLOL TARTRATE 25 MG TABLET PO SCH ×3 (09:20→20:59)
[2021-07-16] MEDS: PANTOPRAZOLE 40 MG TABLET PO SCH (09:20)
[2021-07-16] MEDS: POTASSIUM CHLORIDE 20 MEQ TABLET PO PRN ×3 (11:23→18:15)
[2021-07-16] MEDS: ONDANSETRON 4 MG/2 ML VIAL IV PRN ×2 (11:24→18:13)
[2021-07-16] MEDS: LACTATED RINGERS 1,000 ML IV SCH ×3 (11:31→18:13)
[2021-07-16] MEDS: ENOXAPARIN 40 MG/0.4 ML SYRINGE SUBCUT SCH (18:12)
[2021-07-16] MEDS: HYDROmorphone 1 MG/1 ML SYRINGE IV PRN ×2 (22:21→22:29)
[2021-07-17] MEDS: LACTATED RINGERS 1,000 ML IV SCH (02:16)
[2021-07-17 05:01] LABS: Basophils # 0.1 10*3/uL (0.0-0.2); Basophils % 0.7 % (0.0-0.8); Eosinophils # 0.4 10*3/uL (0.0-0.87); Eosinophils % 3.5 % (0.00-10.9); Hematocrit 29.3 VOL% (35.7-47.0); Hemoglobin 9.6 GM/DL (12.0-16.0); Immature Granulocytes % 3.3 %; Immature Granulocytes Absolute 0.41 #; Lymphocytes # 1.7 10*3/uL (1.4-4.0); Lymphocytes % 13.8 % (21.3-54.2); Mean Corpuscular HGB Conc 32.8 GM/DL (32-36); Mean Corpuscular Volume 111.8 FL (87-102); Mean Platelet Volume 10.2 FL (9.6-12.0); Monocytes % 15.2 % (1.7-12.7); Neutrophils % 63.5 % (38.7-73.9); Platelet Count 238 T/CUMM (130-400); Red Blood Count 2.62 MC/CUMM (3.8-5.5); Red Cell Distribution Width 15.8 % (9.3-17.3); White Blood Count 12.2 T/CUMM (4-12)
[2021-07-17 05:20] LABS: Calcium 7.8 MG/DL (8.5-10.1); Osmolality,Calculated 269.8 MOS/KG (273-304); Potassium 3.6 MMOL/L (3.5-5.1)
[2021-07-17 05:22] LABS: Band Neutrophils 2 % (0-10); Eosinophils 3 % (0-10); Lymphocytes 14 % (20-55); Promyelocytes 1 %; Segmented Neutrophils 72 % (50-85); Total Cells Counted 100
[2021-07-17 05:23] LABS: Macrocytosis 1+; Platelet Estimate Normal
[2021-07-17 05:29] LABS: Folate > 24.00 NG/ML (5.38-24.0); Vitamin B12 > 2000 PG/ML (211-911)
[2021-07-17] MEDS: VANCOMYCIN 125 MG CAPSULE PO SCH (06:07)
[2021-07-17] MEDS: POTASSIUM CHLORIDE 20 MEQ TABLET PO SCH (09:05)
[2021-07-17] MEDS: POTASSIUM CHLORIDE 20 MEQ TABLET PO PRN (09:06)
[2021-07-17] MEDS: PANTOPRAZOLE 40 MG TABLET PO SCH (09:06)
[2021-07-17] MEDS: levETIRAcetam 500 MG TABLET PO SCH (09:06)
[2021-07-17] MEDS: ONDANSETRON 4 MG/2 ML VIAL IV PRN (09:07)
[2021-07-17] MEDS: MAGNESIUM SULF RIDER 2 GM/50 ML PREMIX IV PRN (09:13)
[2021-07-17] MEDS: METOPROLOL TARTRATE 25 MG TABLET PO SCH (09:23)
[2021-07-17] MEDS ORDERED: VANCOMYCIN 50 MG/ML 60 ML/BOTTLE PO SCH (11:00)
[2021-07-17 15:03] VITALS: BP 131/87
== END 2021-07-17 14:00 | disposition home or self-care (01) | DRG 372 ==
LOC: N.ED 14:24 → N.EDINP 18:22 → N.TELES 19:30
PROVIDERS: ADMIT Internal Medicine Geriatric Medicine; ATTEND Internal Medicine Geriatric Medicine

== ENCOUNTER 2022-01-22 19:10 | Inpatient (IN) ==
[2022-01-22] MEDS ORDERED: cefTRIAXone 1,000 MG in SODIUM CHLORIDE 0.9% 100 ML IV STA (20:05)
[2022-01-22] MEDS ORDERED: SODIUM CHLORIDE 0.9% 1,000 ML IV STA ×2 (20:05→21:38)
[2022-01-22] MEDS ORDERED: ALBUTEROL/IPRATROPIUM 3 ML NEB RESP TX STA (20:06)
[2022-01-22 20:20] LABS: Basophils # 0.1 10*3/uL (0.0-0.2); Basophils % 0.5 % (0.0-0.8); Eosinophils % 0.2 % (0.00-10.9); Hematocrit 35.2 VOL% (35.7-47.0); Hemoglobin 11.6 GM/DL (12.0-16.0); Immature Granulocytes % 3.4 %; Immature Granulocytes Absolute 0.55 #; Lymphocytes # 0.5 10*3/uL (1.4-4.0); Lymphocytes % 2.8 % (21.3-54.2); Mean Corpuscular Volume 104.1 FL (87-102); Monocytes # 0.5 10*3/uL (0.11-0.8); Monocytes % 2.8 % (1.7-12.7); Neutrophils % 90.3 % (38.7-73.9); Platelet Count 374 T/CUMM (130-400); Red Blood Count 3.38 MC/CUMM (3.8-5.5); White Blood Count 16.3 T/CUMM (4-12)
[2022-01-22 20:42] LABS: Band Neutrophils 2 % (0-10); Lymphocytes 1 % (20-55); Myelocytes 1 %; Total Cells Counted 100
[2022-01-22 20:44] LABS: Anisocytosis Slight; Macrocytosis Slight; Platelet Estimate Adequate; Polychromasia Slight; Toxic Granulation 1+
[2022-01-22 20:46] LABS: Albumin 2.4 G/DL (3.4-5.0); Bilirubin,Total 0.4 MG/DL (0.20-1.00); Calcium 8.9 MG/DL (8.5-10.1); Osmolality,Calculated 271.2 MOS/KG (273-304); Potassium 4.3 MMOL/L (3.5-5.1); Total Protein 7.5 G/DL (6.4-8.2)
[2022-01-22 21:24] LABS: Bacteria,Urine Many /HPF (Few); Bilirubin,Urine Negative (Negative); Blood, Urine Moderate mg/dL (Negative); Glucose,Urine (UA) Negative (Negative); Ketones,Urine Negative (Negative); Nitrite,Urine Positive (Negative); Protein,Urine 100 mg/dL (Negative); RBC,Urine 150 /HPF (0-4); Squamous Epithelial Cell,Urine Few /HPF (0-10); Urine Appearance CLOUDY (Clear); Urine Color Amber (Yellow); Urine Specific Gravity 1.053 (1.001-1.035); Urine Urobilinogen < 2.0 eU/dL (<2.0)
[2022-01-22 21:38] LABS: Arterial Base Excess iSTAT 1 MMOL/L (-2.5-2.5); Arterial Bicarbonate iSTAT 25.7 MMOL/L (20-26); Arterial O2 Saturation iSTAT 94 % (95-100); Arterial PCO2 iSTAT 42 MM HG (35-48); Arterial PO2 iSTAT 72 MM HG (80-95); Arterial Total CO2 iSTAT 27 MMO/L (23-27); Arterial pH iSTAT 7.401 (7.35-7.45)
[2022-01-22] MEDS ORDERED: ACETAMINOPHEN 325 MG TABLET PO PRN (22:41)
[2022-01-22] MEDS ORDERED: ONDANSETRON 4 MG/2 ML VIAL IV PRN (22:41)
[2022-01-22] MEDS ORDERED: ALUMINUM/MAGNES/SIMETH MAX STR 30 ML UDCUP PO PRN (22:41)
[2022-01-22] MEDS: ALBUTEROL/IPRATROPIUM 3 ML NEB RESP TX SCH (23:50)
[2022-01-23] MEDS ORDERED: CETIRIZINE PSEUDOEPHEDRINE PO PRN (00:12)
[2022-01-23] MEDS ORDERED: LOPERAMIDE 2 MG CAPSULE PO PRN (00:12)
[2022-01-23] MEDS ORDERED: ACETAMINOPHEN/CODEINE 300-30 MG TABLET PO PRN (00:12)
[2022-01-23] MEDS: SODIUM CHLORIDE 0.9% 1,000 ML IV SCH ×2 (01:13→15:10)
[2022-01-23] MEDS: AZITHROMYCIN INJ 500 MG in SODIUM CHLORIDE 0.9% 250 ML IV SCH (01:14)
[2022-01-23] MEDS ORDERED: valACYclovir 500 MG TABLET PO ONE (01:30)
[2022-01-23] MEDS ORDERED: GABAPENTIN 300 MG CAPSULE PO ONE (01:30)
[2022-01-23] MEDS ORDERED: levETIRAcetam 500 MG TABLET PO ONE (01:30)
[2022-01-23 05:47] LABS: Basophils % 0.3 % (0.0-0.8); Eosinophils % 0.2 % (0.00-10.9); Hematocrit 26.8 VOL% (35.7-47.0); Hemoglobin 8.7 GM/DL (12.0-16.0); Immature Granulocytes % 3.4 %; Immature Granulocytes Absolute 0.47 #; Lymphocytes # 1.2 10*3/uL (1.4-4.0); Lymphocytes % 8.5 % (21.3-54.2); Mean Corpuscular HGB Conc 32.5 GM/DL (32-36); Mean Corpuscular Volume 104.7 FL (87-102); Mean Platelet Volume 9.7 FL (9.6-12.0); Monocytes # 1.2 10*3/uL (0.11-0.8); Neutrophils % 78.6 % (38.7-73.9); Platelet Count 293 T/CUMM (130-400); Red Blood Count 2.56 MC/CUMM (3.8-5.5); Red Cell Distribution Width 15.3 % (9.3-17.3); White Blood Count 13.8 T/CUMM (4-12)
[2022-01-23 05:50] LABS: Calcium 7.9 MG/DL (8.5-10.1); Osmolality,Calculated 273.8 MOS/KG (273-304); Potassium 3.5 MMOL/L (3.5-5.1)
[2022-01-23 06:05] LABS: Lymphocytes 7 % (20-55); Platelet Estimate Normal; Total Cells Counted 100
[2022-01-23] MEDS: ALBUTEROL/IPRATROPIUM 3 ML NEB RESP TX SCH ×3 (07:18→19:48)
[2022-01-23 08:05] LABS: PT Patient Result 11.4 SECS (10.1-12.1)
[2022-01-23] MEDS ORDERED: FUROSEMIDE 40 MG/4 ML VIAL IV ONE (08:12)
[2022-01-23] MEDS: ENOXAPARIN 40 MG/0.4 ML SYRINGE SUBCUT SCH (09:49)
[2022-01-23] MEDS: DOCUSATE SODIUM 100 MG CAPSULE PO SCH (10:09)
[2022-01-23] MEDS: methylPREDNISolone SOD SUC 40 MG/1 ML VIAL IV SCH ×2 (10:10→16:06)
[2022-01-23] MEDS: PANTOPRAZOLE 40 MG TABLET PO SCH (10:10)
[2022-01-23] MEDS ORDERED: MORPHINE 2 MG/1 ML SYRINGE IV PRN (13:34)
[2022-01-23] MEDS: POTASSIUM CHLORIDE 10 MEQ TABLET PO SCH (14:54)
[2022-01-23] MEDS: MAGNESIUM OXIDE 400 MG TABLET PO SCH (14:54)
[2022-01-23] MEDS: levETIRAcetam 500 MG TABLET PO SCH (14:54)
[2022-01-23] MEDS: GABAPENTIN 300 MG CAPSULE PO SCH (14:54)
[2022-01-23] MEDS: METOPROLOL TARTRATE 25 MG TABLET PO SCH (14:54)
[2022-01-23] MEDS: BACILLUS COAGULANS CAPLET PO SCH (14:54)
[2022-01-24] MEDS: DOCUSATE SODIUM 100 MG CAPSULE PO SCH ×3 (00:11→22:56)
[2022-01-24] MEDS: GABAPENTIN 300 MG CAPSULE PO SCH ×3 (00:12→22:55)
[2022-01-24] MEDS: METOPROLOL TARTRATE 25 MG TABLET PO SCH ×3 (00:12→22:55)
[2022-01-24] MEDS: levETIRAcetam 500 MG TABLET PO SCH ×3 (00:12→22:55)
[2022-01-24] MEDS: FOLIC ACID 1 MG TABLET PO SCH ×2 (00:13→22:55)
[2022-01-24] MEDS: valACYclovir 500 MG TABLET PO SCH ×2 (00:14→22:56)
[2022-01-24] MEDS: BACILLUS COAGULANS CAPLET PO SCH ×3 (00:15→22:56)
[2022-01-24] MEDS: methylPREDNISolone SOD SUC 40 MG/1 ML VIAL IV SCH ×3 (01:03→17:46)
[2022-01-24] MEDS: ALBUTEROL/IPRATROPIUM 3 ML NEB RESP TX SCH ×4 (01:50→19:38)
[2022-01-24] MEDS: AZITHROMYCIN INJ 500 MG in SODIUM CHLORIDE 0.9% 250 ML IV SCH ×2 (03:39→22:56)
[2022-01-24] MEDS: SODIUM CHLORIDE 0.9% 1,000 ML IV SCH ×2 (03:40→19:06)
[2022-01-24 05:19] LABS: Basophils % 0.3 % (0.0-0.8); Hematocrit 30.9 VOL% (35.7-47.0); Hemoglobin 9.9 GM/DL (12.0-16.0); Immature Granulocytes Absolute 0.51 #; Lymphocytes # 0.6 10*3/uL (1.4-4.0); Lymphocytes % 6.1 % (21.3-54.2); Mean Corpuscular Volume 107.3 FL (87-102); Mean Platelet Volume 10.4 FL (9.6-12.0); Monocytes # 0.4 10*3/uL (0.11-0.8); Monocytes % 3.4 % (1.7-12.7); Neutrophils % 85.2 % (38.7-73.9); Platelet Count 298 T/CUMM (130-400); Red Blood Count 2.88 MC/CUMM (3.8-5.5); White Blood Count 10.3 T/CUMM (4-12)
[2022-01-24 06:00] LABS: Lymphocytes 6 % (20-55); Total Cells Counted 100
[2022-01-24 06:01] LABS: Platelet Estimate Normal
[2022-01-24] MEDS: POTASSIUM CHLORIDE 10 MEQ TABLET PO SCH (10:10)
[2022-01-24] MEDS: ENOXAPARIN 40 MG/0.4 ML SYRINGE SUBCUT SCH (10:10)
[2022-01-24] MEDS: PANTOPRAZOLE 40 MG TABLET PO SCH (10:12)
[2022-01-24] MEDS: MAGNESIUM OXIDE 400 MG TABLET PO SCH (10:12)
[2022-01-24] MEDS: VANCOMYCIN 125 MG CAPSULE PO SCH ×3 (10:15→22:56)
[2022-01-24] MEDS ORDERED: MAGNESIUM SULF RIDER 1 GM/100 ML PREMIX IV ONE (10:27)
[2022-01-25] MEDS: ALBUTEROL/IPRATROPIUM 3 ML NEB RESP TX SCH ×3 (00:58→13:57)
[2022-01-25] MEDS: methylPREDNISolone SOD SUC 40 MG/1 ML VIAL IV SCH ×3 (02:25→16:55)
[2022-01-25] MEDS: VANCOMYCIN 125 MG CAPSULE PO SCH ×3 (04:16→16:42)
[2022-01-25] MEDS: SODIUM CHLORIDE 0.9% 1,000 ML IV SCH (04:17)
[2022-01-25 05:40] LABS: Calcium 7.9 MG/DL (8.5-10.1); Potassium 3.6 MMOL/L (3.5-5.1)
[2022-01-25] MEDS ORDERED: CALCIUM (CARBONATE)/VITAMIN D 600 MG-400 UNIT TABLET PO SCH (09:00)
[2022-01-25] MEDS: levETIRAcetam 500 MG TABLET PO SCH (09:12)
[2022-01-25] MEDS: DOCUSATE SODIUM 100 MG CAPSULE PO SCH (09:12)
[2022-01-25] MEDS: MAGNESIUM OXIDE 400 MG TABLET PO SCH (09:12)
[2022-01-25] MEDS: PANTOPRAZOLE 40 MG TABLET PO SCH (09:12)
[2022-01-25] MEDS: METOPROLOL TARTRATE 25 MG TABLET PO SCH (09:12)
[2022-01-25] MEDS: BACILLUS COAGULANS CAPLET PO SCH (09:12)
[2022-01-25] MEDS: POTASSIUM CHLORIDE 10 MEQ TABLET PO SCH (09:12)
[2022-01-25] MEDS: GABAPENTIN 300 MG CAPSULE PO SCH (09:12)
[2022-01-25] MEDS: ENOXAPARIN 40 MG/0.4 ML SYRINGE SUBCUT SCH (09:13)
[2022-01-25 17:05] VITALS: BP 121/73
== END 2022-01-25 18:11 | disposition home or self-care (01) | DRG 193 ==
LOC: EDBD → EDUNIT# → N.ED 19:10 → SUATTDRO 22:39 → N.EDINP 22:39 → N.TELES 01-23 00:16
PROVIDERS: ADMIT Internal Medicine; ATTEND Emergency Medicine

== ENCOUNTER 2022-03-31 10:45 | Inpatient (IN) ==
[2022-03-31] MEDS ORDERED: ACETAMINOPHEN 500 MG TABLET PO STA (12:29)
[2022-03-31 13:34] LABS: Alanine Aminotransferase 13 U/L (13-56); Albumin 2.3 G/DL (3.4-5.0); Alkaline Phosphatase 97 U/L (45-117); Aspartate Amino Transferase 19 U/L (0-37); Bilirubin,Total < 0.39 MG/DL (0.20-1.00); Blood Urea Nitrogen 10 MG/DL (7-18); Carbon Dioxide 28 MMOL/L (21-32); Chloride 101 MMOL/L (98-107); Glucose 102 MG/DL (74-106); Potassium 3.9 MMOL/L (3.5-5.1); Sodium 136 MMOL/L (136-145); Total Protein 6.7 G/DL (6.4-8.2)
[2022-03-31 14:20] LABS: Basophils % 0.4 % (0.0-0.8); Eosinophils # 0.1 10*3/uL (0.0-0.87); Eosinophils % 1.5 % (0.00-10.9); Hematocrit 26.2 VOL% (35.7-47.0); Hemoglobin 8.7 GM/DL (12.0-16.0); Immature Granulocytes % 0.6 %; Immature Granulocytes Absolute 0.03 #; Lymphocytes # 0.9 10*3/uL (1.4-4.0); Lymphocytes % 16.9 % (21.3-54.2); Mean Corpuscular HGB Conc 33.2 GM/DL (32-36); Mean Corpuscular Volume 118.6 FL (87-102); Mean Platelet Volume 9.7 FL (9.6-12.0); Monocytes # 0.1 10*3/uL (0.11-0.8); Monocytes % 1.5 % (1.7-12.7); Neutrophils % 79.1 % (38.7-73.9); Platelet Count 324 T/CUMM (130-400); Red Blood Count 2.21 MC/CUMM (3.8-5.5); Red Cell Distribution Width 13.2 % (9.3-17.3); White Blood Count 5.3 T/CUMM (4-12)
[2022-03-31 14:39] LABS: Platelet Estimate Adequate
[2022-03-31 14:40] LABS: Macrocytosis 2+
[2022-03-31] MEDS ORDERED: ONDANSETRON 4 MG/2 ML VIAL IV PRN (15:13)
[2022-03-31] MEDS ORDERED: ACETAMINOPHEN 325 MG TABLET PO PRN (15:13)
[2022-03-31] MEDS ORDERED: DOCUSATE SODIUM 100 MG CAPSULE PO PRN (15:13)
[2022-03-31] MEDS ORDERED: FUROSEMIDE 40 MG TABLET PO PRN (15:16)
[2022-03-31] MEDS ORDERED: PROMETHAZINE 25 MG TABLET PO PRN (15:16)
[2022-03-31] MEDS ORDERED: [UNRECOGNIZED DRUG - OTHER] PO PRN (15:16)
[2022-03-31 15:43] LABS: Thyroid Stimulating Hormone 0.862 uIU/ml (0.358-3.74)
[2022-03-31] MEDS: ENOXAPARIN 40 MG/0.4 ML SYRINGE SUBCUT SCH (16:16)
[2022-03-31 18:02] LABS: INR 0.9; PT Patient Result 10.5 SECS (10.1-12.1)
[2022-03-31] MEDS: FOLIC ACID 1 MG TABLET PO SCH (18:21)
[2022-03-31] MEDS: ALBUTEROL/IPRATROPIUM 3 ML NEB RESP TX SCH (18:55)
[2022-03-31] MEDS: BUDESONIDE/FORMOTEROL 160-4.5 INHALER 6 GM INH SCH (20:31)
[2022-03-31] MEDS: BACILLUS COAGULANS CAPLET PO SCH (20:32)
[2022-03-31] MEDS: METOPROLOL TARTRATE 25 MG TABLET PO SCH (20:32)
[2022-03-31] MEDS: GABAPENTIN 300 MG CAPSULE PO SCH (20:32)
[2022-03-31] MEDS: levETIRAcetam 500 MG TABLET PO SCH (20:32)
[2022-03-31] MEDS: valACYclovir 500 MG TABLET PO SCH (20:32)
[2022-04-01] MEDS: ALBUTEROL/IPRATROPIUM 3 ML NEB RESP TX SCH ×4 (00:35→19:22)
[2022-04-01 05:44] LABS: Basophils % 0.7 % (0.0-0.8); Eosinophils # 0.1 10*3/uL (0.0-0.87); Eosinophils % 2.4 % (0.00-10.9); Hematocrit 23.1 VOL% (35.7-47.0); Hemoglobin 7.8 GM/DL (12.0-16.0); Immature Granulocytes % 0.3 %; Immature Granulocytes Absolute 0.01 #; Lymphocytes # 0.9 10*3/uL (1.4-4.0); Lymphocytes % 29.7 % (21.3-54.2); Mean Corpuscular HGB Conc 33.8 GM/DL (32-36); Mean Corpuscular Volume 117.9 FL (87-102); Mean Platelet Volume 9.5 FL (9.6-12.0); Monocytes # 0.1 10*3/uL (0.11-0.8); Monocytes % 3.5 % (1.7-12.7); Neutrophils % 63.4 % (38.7-73.9); Platelet Count 231 T/CUMM (130-400); Red Blood Count 1.96 MC/CUMM (3.8-5.5); Red Cell Distribution Width 13.4 % (9.3-17.3); White Blood Count 2.9 T/CUMM (4-12)
[2022-04-01 06:01] LABS: Calcium 8.7 MG/DL (8.5-10.1); Osmolality,Calculated 267.2 MOS/KG (273-304); Potassium 3.7 MMOL/L (3.5-5.1)
[2022-04-01 06:09] LABS: Eosinophils 4 % (0-10); Lymphocytes 30 % (20-55); Platelet Estimate Normal; Total Cells Counted 100
[2022-04-01 06:10] LABS: Anisocytosis 1+; Macrocytosis 1+
[2022-04-01 08:07] LABS: Arterial Base Excess iSTAT 2 MMOL/L (-2.5-2.5); Arterial Bicarbonate iSTAT 26.2 MMOL/L (20-26); Arterial O2 Saturation iSTAT 84 % (95-100); Arterial PCO2 iSTAT 39 MM HG (35-48); Arterial PO2 iSTAT 47 MM HG (80-95); Arterial Total CO2 iSTAT 27 MMO/L (23-27)
[2022-04-01] MEDS ORDERED: PSEUDOEPHEDRINE 30 MG TABLET PO PRN (09:35)
[2022-04-01] MEDS: POTASSIUM CHLORIDE 10 MEQ TABLET PO SCH (10:17)
[2022-04-01] MEDS: levETIRAcetam 500 MG TABLET PO SCH ×2 (10:18→21:28)
[2022-04-01] MEDS: GABAPENTIN 300 MG CAPSULE PO SCH ×2 (10:18→21:28)
[2022-04-01] MEDS: BACILLUS COAGULANS CAPLET PO SCH ×2 (10:18→21:28)
[2022-04-01] MEDS: METOPROLOL TARTRATE 25 MG TABLET PO SCH ×2 (10:18→21:28)
[2022-04-01] MEDS: MAGNESIUM OXIDE 400 MG TABLET PO SCH (10:18)
[2022-04-01] MEDS: CETIRIZINE 10 MG TABLET PO SCH ×2 (10:19→21:28)
[2022-04-01] MEDS: BUDESONIDE/FORMOTEROL 160-4.5 INHALER 6 GM INH SCH ×2 (10:19→21:29)
[2022-04-01] MEDS: PANTOPRAZOLE 40 MG TABLET PO SCH (10:20)
[2022-04-01] MEDS: ACETAMINOPHEN/CODEINE 300-30 MG TABLET PO PRN (16:24)
[2022-04-01] MEDS: ENOXAPARIN 40 MG/0.4 ML SYRINGE SUBCUT SCH (16:26)
[2022-04-01] MEDS: FOLIC ACID 1 MG TABLET PO SCH (21:28)
[2022-04-01] MEDS: valACYclovir 500 MG TABLET PO SCH (21:28)
[2022-04-02] MEDS: ALBUTEROL/IPRATROPIUM 3 ML NEB RESP TX SCH ×4 (00:18→19:22)
[2022-04-02 06:17] LABS: Calcium 8.2 MG/DL (8.5-10.1); Osmolality,Calculated 272.8 MOS/KG (273-304); Potassium 3.7 MMOL/L (3.5-5.1)
[2022-04-02 07:18] LABS: Basophils % 1.1 % (0.0-0.8); Eosinophils # 0.1 10*3/uL (0.0-0.87); Eosinophils % 3.3 % (0.00-10.9); Hematocrit 21.4 VOL% (35.7-47.0); Hemoglobin 7.1 GM/DL (12.0-16.0); Immature Granulocytes % 0.5 %; Immature Granulocytes Absolute 0.01 #; Lymphocytes # 0.8 10*3/uL (1.4-4.0); Mean Corpuscular HGB Conc 33.2 GM/DL (32-36); Mean Corpuscular Volume 117.6 FL (87-102); Mean Platelet Volume 9.6 FL (9.6-12.0); Monocytes # 0.1 10*3/uL (0.11-0.8); Monocytes % 7.7 % (1.7-12.7); Neutrophils % 43.4 % (38.7-73.9); Red Blood Count 1.82 MC/CUMM (3.8-5.5); Red Cell Distribution Width 13.2 % (9.3-17.3); White Blood Count 1.8 T/CUMM (4-12)
[2022-04-02 07:21] LABS: Platelet Count 172 T/CUMM (130-400)
[2022-04-02 07:41] LABS: Eosinophils 3 % (0-10); Hypochromia 1+; Lymphocytes 45 % (20-55); Microcytosis Slight; Platelet Estimate Adequate; Total Cells Counted 100
[2022-04-02] MEDS ORDERED: SODIUM CHLORIDE 0.9% 1,000 ML IV PRN (08:26)
[2022-04-02] MEDS: PANTOPRAZOLE 40 MG TABLET PO SCH (10:33)
[2022-04-02] MEDS: METOPROLOL TARTRATE 25 MG TABLET PO SCH ×2 (10:33→21:14)
[2022-04-02] MEDS: POTASSIUM CHLORIDE 10 MEQ TABLET PO SCH (10:34)
[2022-04-02] MEDS: GABAPENTIN 300 MG CAPSULE PO SCH ×2 (10:34→21:13)
[2022-04-02] MEDS: ACETAMINOPHEN/CODEINE 300-30 MG TABLET PO PRN ×2 (10:34→16:30)
[2022-04-02] MEDS: BACILLUS COAGULANS CAPLET PO SCH ×2 (10:36→21:13)
[2022-04-02] MEDS: levETIRAcetam 500 MG TABLET PO SCH ×2 (10:36→21:13)
[2022-04-02] MEDS: MAGNESIUM OXIDE 400 MG TABLET PO SCH (10:37)
[2022-04-02] MEDS: BUDESONIDE/FORMOTEROL 160-4.5 INHALER 6 GM INH SCH ×2 (10:37→21:14)
[2022-04-02] MEDS: CETIRIZINE 10 MG TABLET PO SCH ×2 (10:37→21:13)
[2022-04-02] MEDS: FILGRASTIM-SNDZ 300 MCG/0.5 ML SYRINGE SUBCUT SCH (10:52)
[2022-04-02] MEDS: valACYclovir 500 MG TABLET PO SCH (21:13)
[2022-04-02] MEDS: FOLIC ACID 1 MG TABLET PO SCH (21:13)
[2022-04-03] MEDS: ALBUTEROL/IPRATROPIUM 3 ML NEB RESP TX SCH ×2 (00:35→07:23)
[2022-04-03 04:36] LABS: Basophils % 0.2 % (0.0-0.8); Eosinophils # 0.1 10*3/uL (0.0-0.87); Eosinophils % 2.2 % (0.00-10.9); Hemoglobin 9.5 GM/DL (12.0-16.0); Immature Granulocytes % 7.8 %; Immature Granulocytes Absolute 0.38 #; Lymphocytes # 0.9 10*3/uL (1.4-4.0); Lymphocytes % 17.6 % (21.3-54.2); Mean Corpuscular HGB Conc 32.8 GM/DL (32-36); Monocytes # 0.3 10*3/uL (0.11-0.8); Monocytes % 6.3 % (1.7-12.7); Neutrophils % 65.9 % (38.7-73.9); Platelet Count 127 T/CUMM (130-400); Red Blood Count 2.87 MC/CUMM (3.8-5.5); White Blood Count 4.9 T/CUMM (4-12)
[2022-04-03 04:53] LABS: Calcium 8.7 MG/DL (8.5-10.1); Potassium 3.6 MMOL/L (3.5-5.1)
[2022-04-03 05:02] LABS: Eosinophils 1 % (0-10); Lymphocytes 11 % (20-55); Platelet Estimate Normal; Total Cells Counted 100
[2022-04-03 05:03] LABS: Hypochromia Slight; Microcytosis Slight
[2022-04-03 08:22] VITALS: BP 98/69
[2022-04-03] MEDS: PANTOPRAZOLE 40 MG TABLET PO SCH (08:56)
[2022-04-03] MEDS: GABAPENTIN 300 MG CAPSULE PO SCH (08:57)
[2022-04-03] MEDS: MAGNESIUM OXIDE 400 MG TABLET PO SCH (08:57)
[2022-04-03] MEDS: ACETAMINOPHEN/CODEINE 300-30 MG TABLET PO PRN (08:58)
[2022-04-03] MEDS: BACILLUS COAGULANS CAPLET PO SCH (08:58)
[2022-04-03] MEDS: CETIRIZINE 10 MG TABLET PO SCH (08:58)
[2022-04-03] MEDS: levETIRAcetam 500 MG TABLET PO SCH (08:58)
[2022-04-03] MEDS: METOPROLOL TARTRATE 25 MG TABLET PO SCH (08:58)
[2022-04-03] MEDS: POTASSIUM CHLORIDE 10 MEQ TABLET PO SCH (08:59)
[2022-04-03] MEDS: BUDESONIDE/FORMOTEROL 160-4.5 INHALER 6 GM INH SCH (09:00)
[2022-04-03] MEDS: FILGRASTIM-SNDZ 300 MCG/0.5 ML SYRINGE SUBCUT SCH (09:00)
== END 2022-04-03 11:50 | disposition home or self-care (01) | DRG 180 ==
LOC: N.ED 10:45 → N.EDINP 15:12 → N.TELES 16:57
PROVIDERS: ADMIT Internal Medicine; ATTEND Internal Medicine

== ENCOUNTER 2022-04-16 13:15 | Inpatient (IN) ==
[2022-04-16] MEDS ORDERED: SODIUM CHLORIDE 0.9% 1,000 ML IV STA (13:56)
[2022-04-16 14:41] LABS: Basophils % 0.1 % (0.0-0.8); Hematocrit 32.8 VOL% (35.7-47.0); Hemoglobin 11.1 GM/DL (12.0-16.0); Immature Granulocytes % 3.1 %; Immature Granulocytes Absolute 1.43 #; Lymphocytes # 1.2 10*3/uL (1.4-4.0); Lymphocytes % 2.7 % (21.3-54.2); Mean Corpuscular HGB Conc 33.8 GM/DL (32-36); Mean Corpuscular Volume 101.2 FL (87-102); Mean Platelet Volume 9.4 FL (9.6-12.0); Monocytes # 2.3 10*3/uL (0.11-0.8); Neutrophils % 89.1 % (38.7-73.9); Platelet Count 480 T/CUMM (130-400); Red Blood Count 3.24 MC/CUMM (3.8-5.5)
[2022-04-16 14:47] LABS: White Blood Count 45.6 T/CUMM (4-12)
[2022-04-16 14:54] LABS: Alanine Aminotransferase 10 U/L (13-56); Albumin 1.8 G/DL (3.4-5.0); Alkaline Phosphatase 135 U/L (45-117); Aspartate Amino Transferase 10 U/L (0-37); Bilirubin,Total < 0.39 MG/DL (0.20-1.00); Blood Urea Nitrogen 20 MG/DL (7-18); Calcium 8.7 MG/DL (8.5-10.1); Carbon Dioxide 23 MMOL/L (21-32); Chloride 94 MMOL/L (98-107); Glucose 151 MG/DL (74-106); Osmolality,Calculated 260.2 MOS/KG (273-304); Potassium 3.3 MMOL/L (3.5-5.1); Sodium 127 MMOL/L (136-145); Total Protein 6.2 G/DL (6.4-8.2)
[2022-04-16 15:01] LABS: Bilirubin,Urine Negative (Negative); Blood, Urine Negative (Negative); Glucose,Urine (UA) Negative (Negative); Ketones,Urine Negative (Negative); Nitrite,Urine Negative (Negative); Protein,Urine 100 mg/dL (Negative); Urine Appearance Clear (Clear); Urine Color Yellow (Yellow); Urine Specific Gravity >= 1.030 (1.001-1.035); Urine pH 5.5 (4.5-8.0)
[2022-04-16 15:02] LABS: Urine Urobilinogen 0.2 eU/dL (<2.0)
[2022-04-16 15:07] LABS: Mucus,Urine Occasional /LPF (Occasional); RBC,Urine 5 /HPF (0-4); Renal Epithelial Cells,Urine Moderate /HPF (<1)
[2022-04-16 15:23] LABS: Total Cells Counted 100
[2022-04-16 15:24] LABS: Hypochromia Slight; Platelet Estimate Increased
[2022-04-16] MEDS ORDERED: PIPERACILLIN/TAZOBACTAM 3,375 MG in SODIUM CHLORIDE 0.9% 100 ML IV STA (16:24)
[2022-04-16] MEDS ORDERED: ONDANSETRON 4 MG/2 ML VIAL IV PRN (16:25)
[2022-04-16] MEDS ORDERED: CETIRIZINE PSEUDOEPHEDRINE PO PRN (16:28)
[2022-04-16] MEDS: SODIUM CHLORIDE 0.9% 1,000 ML IV SCH ×3 (18:05→23:51)
[2022-04-16] MEDS ORDERED: SODIUM CHLORIDE 0.9% 500 ML IV ONE (21:12)
[2022-04-16] MEDS: METOPROLOL SUCCINATE XL 25 MG TABLET PO SCH (21:14)
[2022-04-16] MEDS: levETIRAcetam 500 MG TABLET PO SCH (21:40)
[2022-04-16] MEDS: GABAPENTIN 300 MG CAPSULE PO SCH (21:40)
[2022-04-16] MEDS: FOLIC ACID 1 MG TABLET PO SCH (21:40)
[2022-04-17 05:44] LABS: Basophils # 0.1 10*3/uL (0.0-0.2); Basophils % 0.4 % (0.0-0.8); Eosinophils # 0.1 10*3/uL (0.0-0.87); Eosinophils % 0.2 % (0.00-10.9); Hematocrit 31.7 VOL% (35.7-47.0); Hemoglobin 10.6 GM/DL (12.0-16.0); Immature Granulocytes % 4.1 %; Immature Granulocytes Absolute 1.59 #; Lymphocytes # 1.1 10*3/uL (1.4-4.0); Lymphocytes % 2.7 % (21.3-54.2); Mean Corpuscular HGB Conc 33.4 GM/DL (32-36); Mean Corpuscular Volume 102.9 FL (87-102); Mean Platelet Volume 9.4 FL (9.6-12.0); Monocytes # 2.6 10*3/uL (0.11-0.8); Monocytes % 6.6 % (1.7-12.7); Platelet Count 493 T/CUMM (130-400); Red Blood Count 3.08 MC/CUMM (3.8-5.5); Red Cell Distribution Width 23.3 % (9.3-17.3); White Blood Count 39.1 T/CUMM (4-12)
[2022-04-17] MEDS: SODIUM CHLORIDE 0.9% 1,000 ML IV SCH ×3 (05:44→19:48)
[2022-04-17 06:02] LABS: Alanine Aminotransferase < 9 U/L (13-56); Albumin 1.7 G/DL (3.4-5.0); Alkaline Phosphatase 125 U/L (45-117); Aspartate Amino Transferase 12 U/L (0-37); Bilirubin,Total < 0.39 MG/DL (0.20-1.00); Blood Urea Nitrogen 20 MG/DL (7-18); Calcium 8.2 MG/DL (8.5-10.1); Carbon Dioxide 21 MMOL/L (21-32); Chloride 100 MMOL/L (98-107); Glucose 112 MG/DL (74-106); Osmolality,Calculated 265.7 MOS/KG (273-304); Potassium 3.2 MMOL/L (3.5-5.1); Sodium 131 MMOL/L (136-145); Total Protein 5.5 G/DL (6.4-8.2)
[2022-04-17 06:18] LABS: Eosinophils 1 % (0-10); Lymphocytes 3 % (20-55); Total Cells Counted 100
[2022-04-17 06:19] LABS: Anisocytosis 1+
[2022-04-17] MEDS: GABAPENTIN 300 MG CAPSULE PO SCH ×2 (09:08→22:43)
[2022-04-17] MEDS: levETIRAcetam 500 MG TABLET PO SCH ×2 (09:08→22:51)
[2022-04-17] MEDS: PANTOPRAZOLE 40 MG TABLET PO SCH (09:08)
[2022-04-17] MEDS: POTASSIUM CHLORIDE 20 MEQ TABLET PO PRN ×3 (09:08→16:30)
[2022-04-17] MEDS: METOPROLOL SUCCINATE XL 25 MG TABLET PO SCH ×2 (09:14→22:45)
[2022-04-17] MEDS: PIPERACILLIN/TAZOBACTAM 3,375 MG in SODIUM CHLORIDE 0.9% 100 ML IV SCH ×2 (12:05→22:52)
[2022-04-17] MEDS: VANCOMYCIN 125 MG CAPSULE PO SCH (22:43)
[2022-04-17] MEDS: FOLIC ACID 1 MG TABLET PO SCH (22:44)
[2022-04-17] MEDS: COLESTIPOL 1 GM TABLET PO SCH (22:51)
[2022-04-18] MEDS: BUDESONIDE/FORMOTEROL 160-4.5 INHALER 6 GM INH SCH ×3 (00:02→21:56)
[2022-04-18] MEDS: SODIUM CHLORIDE 0.9% 1,000 ML IV SCH ×3 (01:13→16:29)
[2022-04-18] MEDS: VANCOMYCIN 125 MG CAPSULE PO SCH ×4 (03:58→21:53)
[2022-04-18] MEDS: PIPERACILLIN/TAZOBACTAM 3,375 MG in SODIUM CHLORIDE 0.9% 100 ML IV SCH ×2 (03:58→13:10)
[2022-04-18 04:32] LABS: Basophils # 0.1 10*3/uL (0.0-0.2); Basophils % 0.5 % (0.0-0.8); Eosinophils # 0.1 10*3/uL (0.0-0.87); Eosinophils % 0.4 % (0.00-10.9); Hematocrit 32.6 VOL% (35.7-47.0); Hemoglobin 10.4 GM/DL (12.0-16.0); Immature Granulocytes % 4.5 %; Immature Granulocytes Absolute 1.38 #; Lymphocytes # 1.2 10*3/uL (1.4-4.0); Lymphocytes % 3.9 % (21.3-54.2); Mean Corpuscular HGB Conc 31.9 GM/DL (32-36); Mean Corpuscular Volume 105.5 FL (87-102); Mean Platelet Volume 9.6 FL (9.6-12.0); Monocytes # 3.3 10*3/uL (0.11-0.8); Monocytes % 10.7 % (1.7-12.7); Platelet Count 444 T/CUMM (130-400); Red Blood Count 3.09 MC/CUMM (3.8-5.5); Red Cell Distribution Width 23.5 % (9.3-17.3); White Blood Count 30.6 T/CUMM (4-12)
[2022-04-18 05:21] LABS: Anisocytosis 2+; Band Neutrophils 12 % (0-10); Burr Cells Few; Eosinophils 1 % (0-10); Lymphocytes 5 % (20-55); Ovalocytes Few; Platelet Estimate Normal; Total Cells Counted 100
[2022-04-18 05:22] LABS: Macrocytosis 1+
[2022-04-18 05:26] LABS: Calcium 7.7 MG/DL (8.5-10.1); Osmolality,Calculated 263.5 MOS/KG (273-304); Potassium 3.7 MMOL/L (3.5-5.1)
[2022-04-18] MEDS: POTASSIUM CHLORIDE 20 MEQ TABLET PO PRN (09:42)
[2022-04-18] MEDS: PANTOPRAZOLE 40 MG TABLET PO SCH (09:42)
[2022-04-18] MEDS: levETIRAcetam 500 MG TABLET PO SCH ×2 (09:42→21:53)
[2022-04-18] MEDS: COLESTIPOL 1 GM TABLET PO SCH ×2 (09:43→21:55)
[2022-04-18] MEDS: GABAPENTIN 300 MG CAPSULE PO SCH ×2 (09:43→21:56)
[2022-04-18] MEDS: BACILLUS COAGULANS CAPLET PO SCH (09:43)
[2022-04-18] MEDS: METOPROLOL SUCCINATE XL 25 MG TABLET PO SCH ×2 (09:54→21:52)
[2022-04-18] MEDS: metroNIDAZOLE INJ 500 MG/100 ML PREMIX IV SCH ×2 (16:28→21:58)
[2022-04-18] MEDS ORDERED: LEVOFLOXACIN INJ 750 MG/150 ML PREMIX IV ONE (17:00)
[2022-04-18] MEDS: FOLIC ACID 1 MG TABLET PO SCH (21:53)
[2022-04-19] MEDS: SODIUM CHLORIDE 0.9% 1,000 ML IV SCH ×3 (00:20→17:21)
[2022-04-19] MEDS: ALBUTEROL 2.5 MG/3 ML NEB RESP TX SCH ×5 (00:48→19:12)
[2022-04-19] MEDS: VANCOMYCIN 125 MG CAPSULE PO SCH ×4 (03:01→22:57)
[2022-04-19 06:11] LABS: Eosinophils # 0.1 10*3/uL (0.0-0.87); Eosinophils % 0.3 % (0.00-10.9); Hematocrit 30.5 VOL% (35.7-47.0); Immature Granulocytes % 7.1 %; Immature Granulocytes Absolute 3.19 #; Lymphocytes # 1.5 10*3/uL (1.4-4.0); Lymphocytes % 3.3 % (21.3-54.2); Mean Corpuscular HGB Conc 32.8 GM/DL (32-36); Mean Corpuscular Volume 102.3 FL (87-102); Mean Platelet Volume 9.6 FL (9.6-12.0); Monocytes # 4.8 10*3/uL (0.11-0.8); Monocytes % 10.6 % (1.7-12.7); Neutrophils % 78.7 % (38.7-73.9); Platelet Count 470 T/CUMM (130-400); Red Blood Count 2.98 MC/CUMM (3.8-5.5); Red Cell Distribution Width 23.5 % (9.3-17.3)
[2022-04-19 06:19] LABS: White Blood Count 45.1 T/CUMM (4-12)
[2022-04-19 06:39] LABS: Calcium 8.2 MG/DL (8.5-10.1); Osmolality,Calculated 269.1 MOS/KG (273-304); Potassium 3.3 MMOL/L (3.5-5.1)
[2022-04-19] MEDS: metroNIDAZOLE INJ 500 MG/100 ML PREMIX IV SCH ×3 (06:54→22:53)
[2022-04-19 08:11] LABS: Anisocytosis 2+; Band Neutrophils 22 % (0-10); Burr Cells 1+; Lymphocytes 4 % (20-55); Macrocytosis 1+; Metamyelocytes 2 %; Myelocytes 1 %; Platelet Estimate Normal; Total Cells Counted 100
[2022-04-19] MEDS: GABAPENTIN 300 MG CAPSULE PO SCH ×2 (10:23→22:55)
[2022-04-19] MEDS: POTASSIUM CHLORIDE 20 MEQ TABLET PO PRN ×3 (10:23→19:01)
[2022-04-19] MEDS: COLESTIPOL 1 GM TABLET PO SCH ×2 (10:23→22:56)
[2022-04-19] MEDS: levETIRAcetam 500 MG TABLET PO SCH ×2 (10:24→22:54)
[2022-04-19] MEDS: BACILLUS COAGULANS CAPLET PO SCH (10:24)
[2022-04-19] MEDS: PANTOPRAZOLE 40 MG TABLET PO SCH (10:24)
[2022-04-19] MEDS: BUDESONIDE/FORMOTEROL 160-4.5 INHALER 6 GM INH SCH ×2 (10:25→22:58)
[2022-04-19] MEDS: METOPROLOL SUCCINATE XL 25 MG TABLET PO SCH ×2 (11:47→22:57)
[2022-04-19] MEDS: MEROPENEM 500 MG in SODIUM CHLORIDE 0.9% 100 ML IV SCH ×3 (11:47→22:53)
[2022-04-19] MEDS ORDERED: LEVOFLOXACIN INJ 750 MG/150 ML PREMIX IV SCH (17:00)
[2022-04-19] MEDS: FOLIC ACID 1 MG TABLET PO SCH (23:23)
[2022-04-20] MEDS: SODIUM CHLORIDE 0.9% 1,000 ML IV SCH ×3 (00:53→21:37)
[2022-04-20] MEDS: ALBUTEROL 2.5 MG/3 ML NEB RESP TX SCH ×5 (00:56→23:59)
[2022-04-20] MEDS: VANCOMYCIN 125 MG CAPSULE PO SCH ×4 (02:47→21:40)
[2022-04-20] MEDS: MEROPENEM 500 MG in SODIUM CHLORIDE 0.9% 100 ML IV SCH ×2 (04:32→09:50)
[2022-04-20 05:40] LABS: Eosinophils # 0.1 10*3/uL (0.0-0.87); Eosinophils % 0.2 % (0.00-10.9); Hematocrit 31.4 VOL% (35.7-47.0); Hemoglobin 10.2 GM/DL (12.0-16.0); Immature Granulocytes % 12.4 %; Immature Granulocytes Absolute 5.72 #; Lymphocytes # 1.6 10*3/uL (1.4-4.0); Lymphocytes % 3.5 % (21.3-54.2); Mean Corpuscular HGB Conc 32.5 GM/DL (32-36); Mean Platelet Volume 9.3 FL (9.6-12.0); Monocytes # 4.1 10*3/uL (0.11-0.8); Monocytes % 8.8 % (1.7-12.7); Neutrophils % 75.1 % (38.7-73.9); Platelet Count 436 T/CUMM (130-400); Red Blood Count 3.02 MC/CUMM (3.8-5.5); Red Cell Distribution Width 23.5 % (9.3-17.3)
[2022-04-20 05:48] LABS: White Blood Count 46.3 T/CUMM (4-12)
[2022-04-20] MEDS: metroNIDAZOLE INJ 500 MG/100 ML PREMIX IV SCH ×3 (06:00→21:39)
[2022-04-20 06:06] LABS: Band Neutrophils 6 % (0-10); Lymphocytes 3 % (20-55); Myelocytes 1 %; Platelet Estimate Increased; Total Cells Counted 100
[2022-04-20 06:16] LABS: Calcium 6.2 MG/DL (8.5-10.1); Osmolality,Calculated 270.1 MOS/KG (273-304); Potassium 3.7 MMOL/L (3.5-5.1)
[2022-04-20 06:20] LABS: Alanine Aminotransferase < 6 U/L (13-56); Albumin 1.4 G/DL (3.4-5.0); Alkaline Phosphatase 116 U/L (45-117); Aspartate Amino Transferase 13 U/L (0-37); Bilirubin,Total < 0.39 MG/DL (0.20-1.00); Blood Urea Nitrogen 14 MG/DL (7-18); Calcium 7.7 MG/DL (8.5-10.1); Carbon Dioxide 14 MMOL/L (21-32); Chloride 112 MMOL/L (98-107); Glucose 117 MG/DL (74-106); Potassium 3.8 MMOL/L (3.5-5.1); Sodium 136 MMOL/L (136-145); Total Protein 4.6 G/DL (6.4-8.2)
[2022-04-20] MEDS: BACILLUS COAGULANS CAPLET PO SCH (09:49)
[2022-04-20] MEDS: GABAPENTIN 300 MG CAPSULE PO SCH ×2 (09:50→21:40)
[2022-04-20] MEDS: levETIRAcetam 500 MG TABLET PO SCH ×2 (09:50→21:40)
[2022-04-20] MEDS: PANTOPRAZOLE 40 MG TABLET PO SCH (09:50)
[2022-04-20] MEDS: METOPROLOL SUCCINATE XL 25 MG TABLET PO SCH ×2 (09:50→21:40)
[2022-04-20] MEDS: BUDESONIDE/FORMOTEROL 160-4.5 INHALER 6 GM INH SCH ×2 (09:51→21:40)
[2022-04-20] MEDS: COLESTIPOL 1 GM TABLET PO SCH ×2 (14:36→21:40)
[2022-04-20] MEDS: PIPERACILLIN/TAZOBACTAM 3,375 MG in SODIUM CHLORIDE 0.9% 100 ML IV SCH (16:26)
[2022-04-20] MEDS: FOLIC ACID 1 MG TABLET PO SCH (21:40)
[2022-04-21] MEDS: VANCOMYCIN 125 MG CAPSULE PO SCH ×4 (03:38→22:08)
[2022-04-21] MEDS: PIPERACILLIN/TAZOBACTAM 3,375 MG in SODIUM CHLORIDE 0.9% 100 ML IV SCH ×3 (03:38→22:09)
[2022-04-21 05:40] LABS: Basophils % 0.1 % (0.0-0.8); Eosinophils # 0.2 10*3/uL (0.0-0.87); Eosinophils % 0.6 % (0.00-10.9); Hematocrit 30.4 VOL% (35.7-47.0); Hemoglobin 10.2 GM/DL (12.0-16.0); Immature Granulocytes % 23.3 %; Immature Granulocytes Absolute 8.77 #; Lymphocytes # 2.6 10*3/uL (1.4-4.0); Mean Corpuscular HGB Conc 33.6 GM/DL (32-36); Mean Platelet Volume 10.2 FL (9.6-12.0); Monocytes % 7.9 % (1.7-12.7); Neutrophils % 61.1 % (38.7-73.9); Platelet Count 378 T/CUMM (130-400); Red Blood Count 3.01 MC/CUMM (3.8-5.5); Red Cell Distribution Width 23.9 % (9.3-17.3); White Blood Count 37.6 T/CUMM (4-12)
[2022-04-21 05:59] LABS: Calcium 7.1 MG/DL (8.5-10.1); Osmolality,Calculated 271.8 MOS/KG (273-304); Potassium 3.9 MMOL/L (3.5-5.1)
[2022-04-21 05:59] LABS: Band Neutrophils 1 % (0-10); Burr Cells Slight; Eosinophils 1 % (0-10); Lymphocytes 12 % (20-55); Metamyelocytes 2 %; Myelocytes 3 %; Total Cells Counted 100
[2022-04-21 06:00] LABS: Anisocytosis 1+; Macrocytosis 1+
[2022-04-21 06:01] LABS: Acanthocytes Few
[2022-04-21] MEDS: ALBUTEROL 2.5 MG/3 ML NEB RESP TX SCH ×3 (07:16→19:55)
[2022-04-21] MEDS: SODIUM CHLORIDE 0.9% 1,000 ML IV SCH (07:43)
[2022-04-21] MEDS: BACILLUS COAGULANS CAPLET PO SCH (08:49)
[2022-04-21] MEDS: POTASSIUM CHLORIDE 20 MEQ TABLET PO PRN (08:49)
[2022-04-21] MEDS: levETIRAcetam 500 MG TABLET PO SCH ×2 (08:49→22:08)
[2022-04-21] MEDS: BUDESONIDE/FORMOTEROL 160-4.5 INHALER 6 GM INH SCH ×2 (08:50→22:09)
[2022-04-21] MEDS: METOPROLOL SUCCINATE XL 25 MG TABLET PO SCH ×2 (08:50→21:38)
[2022-04-21] MEDS: PANTOPRAZOLE 40 MG TABLET PO SCH (08:50)
[2022-04-21] MEDS: GABAPENTIN 300 MG CAPSULE PO SCH ×2 (08:50→22:08)
[2022-04-21] MEDS: COLESTIPOL 1 GM TABLET PO SCH ×2 (09:00→22:08)
[2022-04-21] MEDS: FOLIC ACID 1 MG TABLET PO SCH (22:09)
[2022-04-22] MEDS: ALBUTEROL 2.5 MG/3 ML NEB RESP TX SCH ×4 (00:35→19:30)
[2022-04-22] MEDS: VANCOMYCIN 125 MG CAPSULE PO SCH ×4 (03:34→21:01)
[2022-04-22] MEDS: PIPERACILLIN/TAZOBACTAM 3,375 MG in SODIUM CHLORIDE 0.9% 100 ML IV SCH ×3 (03:35→21:00)
[2022-04-22] MEDS: SODIUM CHLORIDE 0.9% 1,000 ML IV SCH (06:31)
[2022-04-22 06:52] LABS: Basophils % 0.1 % (0.0-0.8); Eosinophils # 0.1 10*3/uL (0.0-0.87); Eosinophils % 0.4 % (0.00-10.9); Hemoglobin 10.6 GM/DL (12.0-16.0); Immature Granulocytes % 32.3 %; Immature Granulocytes Absolute 10.06 #; Lymphocytes # 2.1 10*3/uL (1.4-4.0); Lymphocytes % 6.9 % (21.3-54.2); Mean Corpuscular HGB Conc 32.1 GM/DL (32-36); Mean Corpuscular Volume 104.1 FL (87-102); Mean Platelet Volume 9.1 FL (9.6-12.0); Monocytes % 9.6 % (1.7-12.7); Neutrophils % 50.7 % (38.7-73.9); Platelet Count 387 T/CUMM (130-400); Red Blood Count 3.17 MC/CUMM (3.8-5.5); Red Cell Distribution Width 24.7 % (9.3-17.3); White Blood Count 31.2 T/CUMM (4-12)
[2022-04-22 07:05] LABS: Calcium 7.2 MG/DL (8.5-10.1); Osmolality,Calculated 275.5 MOS/KG (273-304); Potassium 3.7 MMOL/L (3.5-5.1)
[2022-04-22 07:23] LABS: Band Neutrophils 1 % (0-10); Eosinophils 1 % (0-10); Lymphocytes 12 % (20-55); Total Cells Counted 100
[2022-04-22 07:24] LABS: Platelet Estimate Adequate
[2022-04-22] MEDS: COLESTIPOL 1 GM TABLET PO SCH ×2 (10:16→21:05)
[2022-04-22] MEDS: BACILLUS COAGULANS CAPLET PO SCH (10:16)
[2022-04-22] MEDS: GABAPENTIN 300 MG CAPSULE PO SCH ×2 (10:17→21:01)
[2022-04-22] MEDS: POTASSIUM CHLORIDE 20 MEQ TABLET PO PRN (10:18)
[2022-04-22] MEDS: METOPROLOL SUCCINATE XL 25 MG TABLET PO SCH ×2 (10:19→21:01)
[2022-04-22] MEDS: BUDESONIDE/FORMOTEROL 160-4.5 INHALER 6 GM INH SCH ×2 (10:19→21:06)
[2022-04-22] MEDS: levETIRAcetam 500 MG TABLET PO SCH ×2 (10:19→21:01)
[2022-04-22] MEDS: PANTOPRAZOLE 40 MG TABLET PO SCH (10:19)
[2022-04-22] MEDS: FOLIC ACID 1 MG TABLET PO SCH (21:00)
[2022-04-23] MEDS: PIPERACILLIN/TAZOBACTAM 3,375 MG in SODIUM CHLORIDE 0.9% 100 ML IV SCH ×4 (00:35→16:53)
[2022-04-23] MEDS: ALBUTEROL 2.5 MG/3 ML NEB RESP TX SCH ×4 (00:45→19:55)
[2022-04-23] MEDS: VANCOMYCIN 125 MG CAPSULE PO SCH ×4 (03:19→21:05)
[2022-04-23 06:22] LABS: Basophils % 0.1 % (0.0-0.8); Eosinophils # 0.2 10*3/uL (0.0-0.87); Eosinophils % 0.6 % (0.00-10.9); Hematocrit 33.3 VOL% (35.7-47.0); Hemoglobin 10.7 GM/DL (12.0-16.0); Immature Granulocytes % 32.8 %; Lymphocytes # 4.3 10*3/uL (1.4-4.0); Lymphocytes % 11.8 % (21.3-54.2); Mean Corpuscular HGB Conc 32.1 GM/DL (32-36); Mean Corpuscular Volume 105.7 FL (87-102); Mean Platelet Volume 9.5 FL (9.6-12.0); Monocytes # 3.2 10*3/uL (0.11-0.8); Monocytes % 8.8 % (1.7-12.7); NRBC # 0.03 10*3/uL; Neutrophils % 45.9 % (38.7-73.9); Platelet Count 429 T/CUMM (130-400); Red Blood Count 3.15 MC/CUMM (3.8-5.5); White Blood Count 36.3 T/CUMM (4-12)
[2022-04-23 06:32] LABS: Calcium 7.3 MG/DL (8.5-10.1); Osmolality,Calculated 276.4 MOS/KG (273-304); Potassium 3.6 MMOL/L (3.5-5.1)
[2022-04-23 07:09] LABS: Eosinophils 2 % (0-10); Hypochromia Slight; Lymphocytes 18 % (20-55); Platelet Estimate Adequate; Total Cells Counted 100
[2022-04-23] MEDS: levETIRAcetam 500 MG TABLET PO SCH ×2 (09:03→21:05)
[2022-04-23] MEDS: BACILLUS COAGULANS CAPLET PO SCH (09:03)
[2022-04-23] MEDS: METOPROLOL SUCCINATE XL 25 MG TABLET PO SCH ×2 (09:04→21:05)
[2022-04-23] MEDS: GABAPENTIN 300 MG CAPSULE PO SCH ×2 (09:04→21:05)
[2022-04-23] MEDS: PANTOPRAZOLE 40 MG TABLET PO SCH (09:04)
[2022-04-23] MEDS: BUDESONIDE/FORMOTEROL 160-4.5 INHALER 6 GM INH SCH ×2 (09:05→21:05)
[2022-04-23] MEDS: COLESTIPOL 1 GM TABLET PO SCH ×2 (09:16→21:05)
[2022-04-23] MEDS: FOLIC ACID 1 MG TABLET PO SCH (21:05)
[2022-04-24] MEDS: PIPERACILLIN/TAZOBACTAM 3,375 MG in SODIUM CHLORIDE 0.9% 100 ML IV SCH ×2 (00:39→10:14)
[2022-04-24] MEDS: ALBUTEROL 2.5 MG/3 ML NEB RESP TX SCH ×4 (01:55→19:46)
[2022-04-24] MEDS: VANCOMYCIN 125 MG CAPSULE PO SCH ×4 (04:45→21:43)
[2022-04-24 05:45] LABS: Basophils # 0.1 10*3/uL (0.0-0.2); Basophils % 0.2 % (0.0-0.8); Eosinophils # 0.1 10*3/uL (0.0-0.87); Eosinophils % 0.4 % (0.00-10.9); Hematocrit 33.2 VOL% (35.7-47.0); Immature Granulocytes % 27.4 %; Immature Granulocytes Absolute 9.04 #; Mean Corpuscular HGB Conc 33.1 GM/DL (32-36); Mean Corpuscular Volume 102.5 FL (87-102); Mean Platelet Volume 9.2 FL (9.6-12.0); Monocytes # 2.4 10*3/uL (0.11-0.8); Monocytes % 7.2 % (1.7-12.7); NRBC # 0.02 10*3/uL; Neutrophils % 55.8 % (38.7-73.9); Platelet Count 326 T/CUMM (130-400); Red Blood Count 3.24 MC/CUMM (3.8-5.5); Red Cell Distribution Width 24.5 % (9.3-17.3)
[2022-04-24 06:02] LABS: Calcium 7.4 MG/DL (8.5-10.1); Osmolality,Calculated 275.5 MOS/KG (273-304); Potassium 3.5 MMOL/L (3.5-5.1)
[2022-04-24 06:13] LABS: Lymphocytes 10 % (20-55); Platelet Estimate Adequate; Total Cells Counted 100
[2022-04-24] MEDS: COLESTIPOL 1 GM TABLET PO SCH ×2 (10:13→21:43)
[2022-04-24] MEDS: GABAPENTIN 300 MG CAPSULE PO SCH ×2 (10:13→21:44)
[2022-04-24] MEDS: METOPROLOL SUCCINATE XL 25 MG TABLET PO SCH ×2 (10:13→21:43)
[2022-04-24] MEDS: PANTOPRAZOLE 40 MG TABLET PO SCH (10:13)
[2022-04-24] MEDS: BACILLUS COAGULANS CAPLET PO SCH (10:14)
[2022-04-24] MEDS: BUDESONIDE/FORMOTEROL 160-4.5 INHALER 6 GM INH SCH ×2 (10:14→21:44)
[2022-04-24] MEDS: levETIRAcetam 500 MG TABLET PO SCH ×2 (10:14→21:44)
[2022-04-24] MEDS: FLUCONAZOLE 200 MG TABLET PO SCH (10:33)
[2022-04-24] MEDS: FUROSEMIDE 20 MG TABLET PO PRN (17:04)
[2022-04-24] MEDS: FOLIC ACID 1 MG TABLET PO SCH (21:43)
[2022-04-25] MEDS: ALBUTEROL 2.5 MG/3 ML NEB RESP TX SCH ×4 (02:42→18:50)
[2022-04-25] MEDS: VANCOMYCIN 125 MG CAPSULE PO SCH ×4 (03:29→21:36)
[2022-04-25] MEDS: FLUCONAZOLE 200 MG TABLET PO SCH (09:24)
[2022-04-25] MEDS: PANTOPRAZOLE 40 MG TABLET PO SCH (09:24)
[2022-04-25] MEDS: COLESTIPOL 1 GM TABLET PO SCH ×2 (09:24→21:36)
[2022-04-25] MEDS: levETIRAcetam 500 MG TABLET PO SCH ×2 (09:24→21:42)
[2022-04-25] MEDS: BACILLUS COAGULANS CAPLET PO SCH (09:24)
[2022-04-25] MEDS: GABAPENTIN 300 MG CAPSULE PO SCH ×2 (09:24→21:36)
[2022-04-25] MEDS: METOPROLOL SUCCINATE XL 25 MG TABLET PO SCH ×2 (09:24→21:37)
[2022-04-25] MEDS: BUDESONIDE/FORMOTEROL 160-4.5 INHALER 6 GM INH SCH ×2 (09:25→21:37)
[2022-04-25] MEDS: FOLIC ACID 1 MG TABLET PO SCH (21:36)
[2022-04-26] MEDS: ALBUTEROL 2.5 MG/3 ML NEB RESP TX SCH ×4 (00:20→20:03)
[2022-04-26] MEDS: VANCOMYCIN 125 MG CAPSULE PO SCH ×4 (03:09→20:36)
[2022-04-26 05:31] LABS: Basophils % 0.1 % (0.0-0.8); Eosinophils # 0.1 10*3/uL (0.0-0.87); Eosinophils % 0.4 % (0.00-10.9); Hematocrit 31.8 VOL% (35.7-47.0); Hemoglobin 10.2 GM/DL (12.0-16.0); Immature Granulocytes % 13.5 %; Immature Granulocytes Absolute 2.87 #; Lymphocytes # 2.9 10*3/uL (1.4-4.0); Lymphocytes % 13.8 % (21.3-54.2); Mean Corpuscular HGB Conc 32.1 GM/DL (32-36); Mean Corpuscular Volume 105.3 FL (87-102); Mean Platelet Volume 9.5 FL (9.6-12.0); Monocytes # 1.7 10*3/uL (0.11-0.8); Monocytes % 7.9 % (1.7-12.7); Neutrophils % 64.3 % (38.7-73.9); Platelet Count 233 T/CUMM (130-400); Red Blood Count 3.02 MC/CUMM (3.8-5.5); Red Cell Distribution Width 25.2 % (9.3-17.3); White Blood Count 21.2 T/CUMM (4-12)
[2022-04-26 05:57] LABS: Calcium 6.9 MG/DL (8.5-10.1); Osmolality,Calculated 272.7 MOS/KG (273-304); Potassium 3.4 MMOL/L (3.5-5.1)
[2022-04-26 06:39] LABS: Band Neutrophils 3 % (0-10); Lymphocytes 18 % (20-55); Macrocytosis 1+; Metamyelocytes 2 %; Myelocytes 3 %; Total Cells Counted 100
[2022-04-26 06:40] LABS: Hypochromia Slight; Ovalocytes Slight; Polychromasia Slight
[2022-04-26] MEDS: levETIRAcetam 500 MG TABLET PO SCH ×2 (09:17→20:35)
[2022-04-26] MEDS: COLESTIPOL 1 GM TABLET PO SCH ×2 (09:17→21:00)
[2022-04-26] MEDS: GABAPENTIN 300 MG CAPSULE PO SCH ×2 (09:18→20:35)
[2022-04-26] MEDS: BACILLUS COAGULANS CAPLET PO SCH (09:18)
[2022-04-26] MEDS: PANTOPRAZOLE 40 MG TABLET PO SCH (09:19)
[2022-04-26] MEDS: FLUCONAZOLE 200 MG TABLET PO SCH (09:19)
[2022-04-26] MEDS: POTASSIUM CHLORIDE 20 MEQ TABLET PO PRN (09:19)
[2022-04-26] MEDS: METOPROLOL SUCCINATE XL 25 MG TABLET PO SCH ×2 (09:19→20:35)
[2022-04-26] MEDS: BUDESONIDE/FORMOTEROL 160-4.5 INHALER 6 GM INH SCH ×2 (09:20→20:35)
[2022-04-26] MEDS: FUROSEMIDE 20 MG TABLET PO PRN (09:25)
[2022-04-26] MEDS: POTASSIUM CHLORIDE 20 MEQ TABLET PO SCH (13:01)
[2022-04-26] MEDS: FOLIC ACID 1 MG TABLET PO SCH (20:35)
[2022-04-27] MEDS: ALBUTEROL 2.5 MG/3 ML NEB RESP TX SCH ×4 (00:46→19:17)
[2022-04-27] MEDS: VANCOMYCIN 125 MG CAPSULE PO SCH ×4 (02:08→20:15)
[2022-04-27 06:10] LABS: Albumin 1.3 G/DL (3.4-5.0); Calcium 6.8 MG/DL (8.5-10.1); Osmolality,Calculated 274.5 MOS/KG (273-304); Phosphorous 3.6 MG/DL (2.5-4.9); Potassium 3.9 MMOL/L (3.5-5.1)
[2022-04-27 08:00] LABS: PT Patient Result 10.9 SECS (10.1-12.1)
[2022-04-27] MEDS: COLESTIPOL 1 GM TABLET PO SCH ×2 (11:38→21:28)
[2022-04-27] MEDS: POTASSIUM CHLORIDE 20 MEQ TABLET PO SCH (11:40)
[2022-04-27] MEDS: levETIRAcetam 500 MG TABLET PO SCH ×2 (11:40→20:15)
[2022-04-27] MEDS: GABAPENTIN 300 MG CAPSULE PO SCH ×2 (11:40→20:15)
[2022-04-27] MEDS: BACILLUS COAGULANS CAPLET PO SCH (11:40)
[2022-04-27] MEDS: PANTOPRAZOLE 40 MG TABLET PO SCH (11:51)
[2022-04-27] MEDS: FLUCONAZOLE 200 MG TABLET PO SCH (11:51)
[2022-04-27] MEDS: METOPROLOL SUCCINATE XL 25 MG TABLET PO SCH ×2 (11:51→20:15)
[2022-04-27] MEDS: BUDESONIDE/FORMOTEROL 160-4.5 INHALER 6 GM INH SCH ×2 (11:51→20:16)
[2022-04-27] MEDS ORDERED: FLUCONAZOLE 200 MG TABLET PO SCH (12:00)
[2022-04-27 12:01] LABS: Basophils # 0.2 10*3/uL (0.0-0.2); Basophils % 0.9 % (0.0-0.8); Eosinophils # 0.1 10*3/uL (0.0-0.87); Eosinophils % 0.6 % (0.00-10.9); Hematocrit 29.9 VOL% (35.7-47.0); Hemoglobin 9.6 GM/DL (12.0-16.0); Immature Granulocytes % 8.5 %; Immature Granulocytes Absolute 1.54 #; Lymphocytes # 2.8 10*3/uL (1.4-4.0); Lymphocytes % 15.2 % (21.3-54.2); Mean Corpuscular HGB Conc 32.1 GM/DL (32-36); Mean Corpuscular Volume 103.1 FL (87-102); Mean Platelet Volume 10.2 FL (9.6-12.0); Monocytes # 1.7 10*3/uL (0.11-0.8); Monocytes % 9.1 % (1.7-12.7); NRBC # 0.02 10*3/uL; Neutrophils % 65.7 % (38.7-73.9); Platelet Count 262 T/CUMM (130-400); Red Cell Distribution Width 25.2 % (9.3-17.3); White Blood Count 18.1 T/CUMM (4-12)
[2022-04-27 12:23] LABS: Band Neutrophils 6 % (0-10); Eosinophils 1 % (0-10); Lymphocytes 9 % (20-55); Metamyelocytes 3 %; Total Cells Counted 100
[2022-04-27 12:24] LABS: Burr Cells 1+
[2022-04-27 12:25] LABS: Platelet Estimate Normal; Schistocytes Slight
[2022-04-27] MEDS: FOLIC ACID 1 MG TABLET PO SCH (20:15)
[2022-04-28] MEDS: ALBUTEROL 2.5 MG/3 ML NEB RESP TX SCH ×4 (00:29→19:36)
[2022-04-28] MEDS: VANCOMYCIN 125 MG CAPSULE PO SCH ×4 (03:27→22:01)
[2022-04-28 05:28] LABS: Basophils # 0.1 10*3/uL (0.0-0.2); Basophils % 0.7 % (0.0-0.8); Eosinophils % 0.2 % (0.00-10.9); Hematocrit 28.9 VOL% (35.7-47.0); Hemoglobin 9.5 GM/DL (12.0-16.0); Immature Granulocytes % 5.3 %; Immature Granulocytes Absolute 0.95 #; Lymphocytes # 2.3 10*3/uL (1.4-4.0); Lymphocytes % 12.6 % (21.3-54.2); Mean Corpuscular HGB Conc 32.9 GM/DL (32-36); Mean Corpuscular Volume 101.8 FL (87-102); Mean Platelet Volume 9.4 FL (9.6-12.0); Monocytes # 1.4 10*3/uL (0.11-0.8); Monocytes % 7.5 % (1.7-12.7); Neutrophils % 73.7 % (38.7-73.9); Platelet Count 262 T/CUMM (130-400); Red Blood Count 2.84 MC/CUMM (3.8-5.5); Red Cell Distribution Width 24.9 % (9.3-17.3); White Blood Count 17.9 T/CUMM (4-12)
[2022-04-28 05:51] LABS: Hypochromia Slight; Lymphocytes 9 % (20-55); Microcytosis Slight; Nucleated Red Blood Cells 1 /100 WBC (0-5); Platelet Estimate Adequate; Total Cells Counted 100
[2022-04-28 06:02] LABS: Osmolality,Calculated 279.3 MOS/KG (273-304); Potassium 3.7 MMOL/L (3.5-5.1)
[2022-04-28] MEDS: levETIRAcetam 500 MG TABLET PO SCH ×2 (09:11→20:51)
[2022-04-28] MEDS: COLESTIPOL 1 GM TABLET PO SCH ×2 (09:11→21:50)
[2022-04-28] MEDS: PANTOPRAZOLE 40 MG TABLET PO SCH (09:11)
[2022-04-28] MEDS: FUROSEMIDE 20 MG TABLET PO PRN (09:12)
[2022-04-28] MEDS: METOPROLOL SUCCINATE XL 25 MG TABLET PO SCH ×2 (09:12→20:51)
[2022-04-28] MEDS: BACILLUS COAGULANS CAPLET PO SCH (09:12)
[2022-04-28] MEDS: POTASSIUM CHLORIDE 20 MEQ TABLET PO SCH (09:13)
[2022-04-28] MEDS: BUDESONIDE/FORMOTEROL 160-4.5 INHALER 6 GM INH SCH ×2 (09:18→20:54)
[2022-04-28] MEDS: GABAPENTIN 300 MG CAPSULE PO SCH ×2 (09:19→20:51)
[2022-04-28] MEDS ORDERED: MAGNESIUM SULF RIDER 4 GM in PREMIX 1 EACH IV ONE (15:59)
[2022-04-28] MEDS: FOLIC ACID 1 MG TABLET PO SCH (20:51)
[2022-04-29] MEDS: ALBUTEROL 2.5 MG/3 ML NEB RESP TX SCH ×4 (00:14→19:19)
[2022-04-29] MEDS: VANCOMYCIN 125 MG CAPSULE PO SCH ×4 (05:03→22:00)
[2022-04-29 05:27] LABS: Basophils # 0.1 10*3/uL (0.0-0.2); Basophils % 0.6 % (0.0-0.8); Eosinophils # 0.1 10*3/uL (0.0-0.87); Eosinophils % 0.4 % (0.00-10.9); Hematocrit 30.2 VOL% (35.7-47.0); Hemoglobin 9.8 GM/DL (12.0-16.0); Immature Granulocytes Absolute 0.57 #; Lymphocytes # 1.7 10*3/uL (1.4-4.0); Lymphocytes % 11.9 % (21.3-54.2); Mean Corpuscular HGB Conc 32.5 GM/DL (32-36); Mean Corpuscular Volume 103.8 FL (87-102); Mean Platelet Volume 9.8 FL (9.6-12.0); Monocytes # 1.2 10*3/uL (0.11-0.8); Monocytes % 8.2 % (1.7-12.7); Neutrophils % 74.9 % (38.7-73.9); Platelet Count 246 T/CUMM (130-400); Red Blood Count 2.91 MC/CUMM (3.8-5.5); White Blood Count 14.4 T/CUMM (4-12)
[2022-04-29 05:52] LABS: Eosinophils 1 % (0-10); Lymphocytes 10 % (20-55); Total Cells Counted 100
[2022-04-29 05:55] LABS: Anisocytosis 1+; Hypochromia Slight; Platelet Estimate Normal
[2022-04-29 06:07] LABS: Calcium 7.1 MG/DL (8.5-10.1); Osmolality,Calculated 270.8 MOS/KG (273-304); Potassium 3.9 MMOL/L (3.5-5.1)
[2022-04-29] MEDS ORDERED: MAGNESIUM SULF RIDER 4 GM in PREMIX 1 EACH IV ONE (08:58)
[2022-04-29] MEDS: FUROSEMIDE 20 MG TABLET PO PRN (09:23)
[2022-04-29] MEDS: COLESTIPOL 1 GM TABLET PO SCH ×2 (09:23→21:45)
[2022-04-29] MEDS: METOPROLOL SUCCINATE XL 25 MG TABLET PO SCH ×2 (09:23→20:40)
[2022-04-29] MEDS: PANTOPRAZOLE 40 MG TABLET PO SCH (09:23)
[2022-04-29] MEDS: POTASSIUM CHLORIDE 20 MEQ TABLET PO SCH (09:23)
[2022-04-29] MEDS: levETIRAcetam 500 MG TABLET PO SCH ×2 (09:23→20:40)
[2022-04-29] MEDS: GABAPENTIN 300 MG CAPSULE PO SCH ×2 (09:23→20:40)
[2022-04-29] MEDS: BUDESONIDE/FORMOTEROL 160-4.5 INHALER 6 GM INH SCH ×2 (09:26→20:40)
[2022-04-29] MEDS: BACILLUS COAGULANS CAPLET PO SCH (10:38)
[2022-04-29] MEDS: FOLIC ACID 1 MG TABLET PO SCH (20:40)
[2022-04-30] MEDS: ALBUTEROL 2.5 MG/3 ML NEB RESP TX SCH ×3 (01:11→13:30)
[2022-04-30] MEDS: VANCOMYCIN 125 MG CAPSULE PO SCH ×2 (05:30→10:17)
[2022-04-30 06:48] LABS: Basophils # 0.1 10*3/uL (0.0-0.2); Basophils % 0.5 % (0.0-0.8); Eosinophils # 0.1 10*3/uL (0.0-0.87); Eosinophils % 0.5 % (0.00-10.9); Hematocrit 28.7 VOL% (35.7-47.0); Hemoglobin 9.2 GM/DL (12.0-16.0); Immature Granulocytes Absolute 0.26 #; Lymphocytes % 15.3 % (21.3-54.2); Mean Corpuscular HGB Conc 32.1 GM/DL (32-36); Mean Platelet Volume 9.9 FL (9.6-12.0); Monocytes # 1.2 10*3/uL (0.11-0.8); Monocytes % 9.2 % (1.7-12.7); Neutrophils % 72.5 % (38.7-73.9); Platelet Count 270 T/CUMM (130-400); Red Blood Count 2.76 MC/CUMM (3.8-5.5); White Blood Count 12.9 T/CUMM (4-12)
[2022-04-30 07:06] LABS: Calcium 7.3 MG/DL (8.5-10.1); Osmolality,Calculated 265.1 MOS/KG (273-304); Potassium 3.7 MMOL/L (3.5-5.1)
[2022-04-30 07:21] LABS: Anisocytosis 2+; Burr Cells Few; Platelet Estimate Normal
[2022-04-30 07:22] LABS: Macrocytosis Slight
[2022-04-30] MEDS: PANTOPRAZOLE 40 MG TABLET PO SCH (08:13)
[2022-04-30] MEDS: GABAPENTIN 300 MG CAPSULE PO SCH (08:13)
[2022-04-30] MEDS: BACILLUS COAGULANS CAPLET PO SCH (08:13)
[2022-04-30] MEDS: levETIRAcetam 500 MG TABLET PO SCH (08:13)
[2022-04-30] MEDS: FUROSEMIDE 20 MG TABLET PO PRN (08:14)
[2022-04-30] MEDS: POTASSIUM CHLORIDE 20 MEQ TABLET PO SCH (08:14)
[2022-04-30] MEDS: METOPROLOL SUCCINATE XL 25 MG TABLET PO SCH (08:14)
[2022-04-30] MEDS: BUDESONIDE/FORMOTEROL 160-4.5 INHALER 6 GM INH SCH (08:17)
[2022-04-30] MEDS ORDERED: MAGNESIUM SULF RIDER 4 GM in PREMIX 1 EACH IV ONE (08:53)
[2022-04-30] MEDS ORDERED: MAGNESIUM OXIDE 400 MG TABLET PO SCH (09:00)
[2022-04-30] MEDS: COLESTIPOL 1 GM TABLET PO SCH (10:17)
[2022-04-30 12:40] VITALS: BP 96/61
== END 2022-04-30 15:33 | disposition home health service (06) | DRG 372 ==
LOC: N.ED 13:15 → SUATTDRO 16:25 → N.EDINP 16:25 → N.TELEN 18:18
PROVIDERS: ADMIT Internal Medicine; ATTEND Internal Medicine